=== PATIENT | male | born 1945 | race Caucasian/White ===

== ENCOUNTER 2017-10-20 08:48 | Outpatient (RCR) | payer BC, MEDICARE, SELFPAY ==
--- NOTE | 2017-10-24 07:27 | PT.OTN ---
Current Diagnoses Radiculopathy, lumbar region (10/20/17) Physical Therapy Treatment Note PT-OP-A Visit Information Start: 10/20/17 07:27 Freq: Status: Active Protocol: Document 10/20/17 09:00 AMB (Rec: 10/20/17 09:27 AMB [id number]) Out-Patient Physical Therapy Visit Information Visit Information Visit Type Treatment Note Visit Start Time 09:00 Visit Stop Time 09:45 Total Visit Minutes 45 Visit Number 7 Evaluation Information Evaluation Date 08/16/17 PT-OP-C Subjective Start: 10/20/17 07:27 Freq: Status: Active Protocol: Document 10/20/17 09:00 AMB (Rec: 10/23/17 15:31 AMB [email or web address]) OP-PT Subjective Patient Comments Patient Comments Pt returns from his trip, stating that his radiating leg pain has resolved well. He continues to have low back pain that has been present for years. He states he is ready to discharge. PT-OP-Q Treatments Start: 10/20/17 07:27 Freq: Status: Active Protocol: Document 10/20/17 09:00 AMB (Rec: 10/24/17 07:23 AMB [email or web address]) Therapeutic Exercises Supine Exercises 7 Supine Exercise Name Bridges Reps/Minutes 2 x 10 6 Supine Exercise Name psoas stretch Side bilateral Reps/Minutes 30x2 5 Supine Exercise Name piriformis stretch Side right Reps/Minutes 30x2 4 Supine Exercise Name hamstring stretch Side right Reps/Minutes 30x2 3 Supine Exercise Name single knee to chest Side bilateral Reps/Minutes 30 x 2 2 Supine Exercise Name dying bug Reps/Minutes 2 x 5 1 Supine Exercise Name SLR Side right Resistance 0# Reps/Minutes 3 x 10 Sidelying Exercises 1 Sidelying Exercise Name hip abduction Side right Reps/Minutes 2 x 10 Standing Exercises 1 Standing Exercise Name calf stretch Side bilateral Therapeutic Activity Therapeutic Activity 1 Name lifting mechanics Comments floor to waist, waist to shoulder, 20# PT-OP-T Assessment and Plan Start: 10/20/17 07:27 Freq: Status: Active Protocol: Document 10/20/17 09:00 AMB (Rec: 10/24/17 07:23 AMB [email or web address]) Physical Therapy Assessment Assessment Summary Assessment The patient's radiating leg pain is well resolved at this time, and did not flare up with his travel. He attended 7 PT visits and is independent with a LE stretching and core stability program at this time. He remains tight in his hamstrings, but can sit as long as he needs to without reproducing his leg pain, and can lift 20# from the floor to waist height without reproducing his radiating leg pain, so he is now discharged, having met his goals. Physical Therapy Plan Discharge Physical Therapy Discharge Reasons Goals Met Discharge Comments Pt to follow up with PCP regarding chronic low back pain Please Sign and Return: I have reviewed this Plan of Care and certify that the skilled therapy services above are required to meet the patient???s needs. Physician Signature Date Printed Name and Credentials Clinical Instructor Signature Printed Name and Credentials
== END 2017-11-23 15:23 ==
LOC: PHYS 08:48
PROVIDERS: Family Provider Family Medicine; PCP Family Medicine; Visit Provider Family Medicine
DX: M54.16 Radiculopathy, lumbar region (principal)
CPT/HCPCS: 97110; 97530

== ENCOUNTER → 2018-01-26 16:39 | Outpatient (CLI) | payer BC, MEDICARE, SELFPAY ==
[2018-01-26 21:22] LABS: Hep C Virus Ab w/Reflex Quant NEGATIVE s/c (NEGATIVE)
== END ==
PROVIDERS: Family Provider Family Medicine; PCP Family Medicine; Visit Provider Family Medicine
DX: Z20.5 Contact with and (suspected) exposure to viral hepatitis (principal)
CPT/HCPCS: 36415; 86803

== ENCOUNTER → 2018-05-01 14:35 | Outpatient (CLI) | payer BC, MEDICARE, SELFPAY | PROVIDERS: Family Provider Family Medicine; PCP Family Medicine; Visit Provider Family Medicine | DX: L97.521 Non-pressure chronic ulcer of other part of left foot limited to breakdown of skin (principal); G60.9 Hereditary and idiopathic neuropathy, unspecified | CPT/HCPCS: 97597; 99213; 99214 ==

== ENCOUNTER → 2018-05-08 08:05 | Outpatient (CLI) | payer BC, MEDICARE, SELFPAY ==
[2018-05-08 08:26] LABS: Appearance Urine UA CLEAR; Bilirubin Urine UA NEGATIVE (NEGATIVE); Color Urine UA YELLOW; Glucose Urine UA NEGATIVE (Normal); Ketones Urine UA NEGATIVE (NEGATIVE); Leukocyte Esterase Urine UA NEGATIVE (NEGATIVE); Nitrite Urine UA NEGATIVE (Negative); Occult Blood Urine UA NEGATIVE (Negative); Protein Urine UA NEGATIVE (Negative); Specific Gravity Urine UA 1.025 (1.000-1.035); Urobilinogen Urine UA 0.2 E.U./dL (0.2)
[2018-05-08 08:28] LABS: Add Manual Diff / Slide Review NO; Eosinophils Percent Auto 4.7 % (2-4); Hematocrit 44.3 % (41-53); Hemoglobin 15.4 g/dL (13.5-17.5); Lymphocytes Percent Auto 37.9 % (25-40); Mean Corpuscular HGB Conc 34.8 % (30-36); Mean Corpuscular Hemoglobin 32.1 PG (26-34); Mean Corpuscular Volume 92.2 fL (80-100); Monocytes Percent Auto 6.7 % (3-14); Neutrophils Absolute Auto 2700 /uL (3000-5900); Neutrophils Percent Auto 49.7 % (50-75); Platelet Count 231 X10^3/uL (150-400); Red Blood Cell Count 4.81 X10^6/uL (4.5-5.9); Red Cell Distribution Width 12.5 % (11.6-14.8); White Blood Cell Count 5.4 X10^3/uL (4.5-11.0)
[2018-05-08 08:42] LABS: Alanine Aminotransferase 26 IU/L (21-72); Albumin 4.6 g/dL (3.5-5.0); Albumin Globulin Ratio 1.5 (1.0-2.8); Alkaline Phosphatase 48 U/L (38-126); Aspartate Aminotransferase 30 IU/L (17-59); Bilirubin Total 0.6 mg/dL (0.2-1.3); Blood Urea Nitrogen 20 mg/dL (9-20); Calcium 9.4 mg/dL (8.4-10.2); Carbon Dioxide 28 mmol/L (22-32); Chloride 104 mmol/L (98-107); Cholesterol 225 mg/dL (140-199); Estimated Glomerular Filt Rate > 60.0 mL/min (>60); Globulin 3.1 g/dL (1.7-4.1); Glucose 97 mg/dL (80-110); HDL Cholesterol 43 mg/dL (40-60); HEMOLYSIS < 15 (0-50); LDL Cholesterol Calculated 116 mg/dL (<100); Potassium 4.3 mmol/L (3.4-5.1); Sodium 144 mmol/L (137-145); Total Protein 7.7 g/dL (6.3-8.2); Triglycerides 329 mg/dL (35-150)
[2018-05-08 10:06] LABS: Thyroid Stimulating Hormone 4.99 uIU/mL (0.47-4.68)
== END ==
PROVIDERS: Family Provider Family Medicine; PCP Family Medicine; Visit Provider Family Medicine
DX: I10 Essential (primary) hypertension (principal); I87.2 Venous insufficiency (chronic) (peripheral); Z51.81 Encounter for therapeutic drug level monitoring
CPT/HCPCS: 36415; 80053; 80061; 81003; 84443; 85025

== ENCOUNTER → 2018-05-08 | Outpatient (CLI) | payer MEDICARE, BC, SELFPAY | PROVIDERS: Family Provider Family Medicine; PCP Family Medicine; Visit Provider Family Medicine | DX: L97.522 Non-pressure chronic ulcer of other part of left foot with fat layer exposed (principal); G90.9 Disorder of the autonomic nervous system, unspecified | CPT/HCPCS: 11042 ==

== ENCOUNTER → 2018-05-08 | Outpatient (CLI) | payer MEDICARE, BC, SELFPAY ==
--- NOTE | 2018-05-08 10:42 | DI.RAD.S_ITS ---
PROCEDURE: XR KNEE LT 3V INDICATIONS: left knee pain TECHNIQUE: 3 views of the knee were acquired. COMPARISON: [facility], , KNEE 3V RIGHT, 03/15/2017, 11:19. FINDINGS: Bones: Mild tricompartment osteoarthritis in left knee is seen. No fractures or dislocations. No suspicious bony lesions. No significant patellar subluxation. Soft tissues: No joint effusion. No suspicious soft tissue calcifications. IMPRESSION: Mild tricompartment osteoarthritis in left knee. No fracture or dislocation. No significant joint effusion. Dictated by: Virgil Curry M.D. on 05/08/2018 at 12:13 Approved by: Virgil Curry M.D. on 05/08/2018 at 12:19
== END ==
PROVIDERS: Family Provider Family Medicine; PCP Family Medicine; Visit Provider Family Medicine
DX: M25.562 Pain in left knee (principal); M17.12 Unilateral primary osteoarthritis, left knee; I10 Essential (primary) hypertension; I87.2 Venous insufficiency (chronic) (peripheral); Z51.81 Encounter for therapeutic drug level monitoring
CPT/HCPCS: 36415; 73562; 80053; 80061; 81003; 84443; 85025

== ENCOUNTER → 2018-05-16 | Outpatient (CLI) | payer MEDICARE, BC, SELFPAY | PROVIDERS: Family Provider Family Medicine; PCP Family Medicine; Visit Provider Family Medicine | DX: L97.521 Non-pressure chronic ulcer of other part of left foot limited to breakdown of skin (principal); G90.9 Disorder of the autonomic nervous system, unspecified | CPT/HCPCS: 97597 ==

== ENCOUNTER → 2018-05-23 08:52 | Outpatient (CLI) | payer BC, MEDICARE, SELFPAY | PROVIDERS: Family Provider Family Medicine; PCP Family Medicine; Visit Provider Family Medicine | DX: Z48.817 Encounter for surgical aftercare following surgery on the skin and subcutaneous tissue (principal); L84 Corns and callosities; G90.9 Disorder of the autonomic nervous system, unspecified | CPT/HCPCS: 99212; 99213 ==

== ENCOUNTER → 2018-06-12 08:39 | Outpatient (CLI) | payer BC, MEDICARE, SELFPAY ==
[2018-06-12 09:45] LABS: BUN Creatinine Ratio 17.8 (6-22); Blood Urea Nitrogen 16 mg/dL (9-20); Calcium 9.3 mg/dL (8.4-10.2); Carbon Dioxide 24 mmol/L (22-32); Chloride 106 mmol/L (98-107); Estimated Glomerular Filt Rate > 60.0 mL/min (>60); Glucose 96 mg/dL (80-110); HEMOLYSIS < 15 (0-50); Sodium 141 mmol/L (137-145)
[2018-06-12 10:24] LABS: Free T3, Triiodothyronine Free 3.44 pg/mL (2.77-5.27)
[2018-06-12 10:38] LABS: Thyroid Stimulating Hormone 3.82 uIU/mL (0.47-4.68)
== END ==
PROVIDERS: Family Provider Family Medicine; PCP Family Medicine; Visit Provider Urology
DX: R39.15 Urgency of urination (principal); N40.1 Benign prostatic hyperplasia with lower urinary tract symptoms; R35.0 Frequency of micturition; R39.9 Unspecified symptoms and signs involving the genitourinary system; R79.89 Other specified abnormal findings of blood chemistry
CPT/HCPCS: 36415; 80048; 84443; 84481; 85018; 87077; 87086; 87186

== ENCOUNTER 2018-10-02 07:51 | Day surgery (SDC) | payer MEDICARE, BC, SELFPAY ==
--- NOTE | 2018-10-02 | PATH_ITS ---
[facility] Accession Number: [id number] . 01 Material submitted: . body - BIOPSY POLYP AT 60 . 02 Diagnosis: Colon, Polyp at 60, Biopsy: Benign lymphoid aggregate. Additional levels were examined. [facility]/10/04/2018 . 02 Electronically signed: . April Causey MD, Pathologist NPI- [id number] . 01 Gross description: . BIOPSY POLYP AT 60: Received in formalin is 1 fragment(s) of munoz, soft tissue measuring 0.3 x 0.2 x 0.2 cm which is entirely submitted and submitted entirely in 1 cassette(s) /DMC /DMC . 02 Pathologist provided ICD-10: K63.5 . 02 CPT . 171548 Performed at: 01 [facility] [address] [facility], [place], [place] [id number] MD Mustapha Kahn MD Phone: [phone] Performed at: 02 [facility] [address] [place], [place] [id number] MD April Causey MD Phone: [phone]
[2018-10-02 08:23] VITALS: BP 135/84; PULSE 88; RESP 16; TEMP 36.4; O2SAT 96; BMI 32.5
[2018-10-02] MEDS: SODIUM CHLORIDE 0.9% 1,000 ML 100 ML IV (08:42)
--- NOTE | 2018-10-02 08:53 | PM.HP.1 ---
History of Present Illness Date Patient Seen: 10/02/18 Time Patient Seen: 08:53 Chief complaint: [id number] Narrative: Patient is a gentleman here for screening colonoscopy. No family history of colon cancer. Last exam over 10 years ago Patient History Medical History (Updated 10/02/18 @ 08:56 by Juan Nunez MD) BPH (benign prostatic hyperplasia) (Chronic) Essential hypertension with goal blood pressure less than 130/85 (Chronic) Surgical History Status post bunionectomy Family History (Updated 10/02/18 @ 08:58 by Juan Nunez MD) Brother Cancer Social History household members: spouse Smoking Status: Never smoker Family & Social History Family History (Updated 10/02/18 @ 08:58 by Juan Nunez MD) Brother Cancer Social History: household members spouse Tobacco & Substance use: Smoking Status Never smoker Meds Home Medications Medication Instructions Recorded Confirmed Type aspirin 81 mg PO QDAY #0 06/10/16 06/19/18 History cholecalciferol (vitamin D3) 1,000 1,000 unit PO DAILY 12/12/17 06/19/18 History unit capsule vitamin B complex tablet 1 tab PO DAILY 12/12/17 06/19/18 History vitamin c PO 12/12/17 06/19/18 History fenofibrate nanocrystallized 145 145 mg PO DAILY #90 tab 08/13/18 Rx mg tablet finasteride 5 mg tablet 5 mg PO QDAY #90 tab 08/13/18 Rx valsartan 160 mg tablet 160 mg PO DAILY #90 tab 08/22/18 Rx Allergies Allergy/AdvReac Type Severity Reaction Status Date / Time doxazosin [DOXAZOSIN] Allergy Severe High Verified 10/02/18 08:20 temperature, rash, lumps on skin mezlocillin [MEZLOCILLIN] Allergy Severe High Verified 10/02/18 08:20 temperature, rash, lumps on skin Penicillins [PENICILLINS] Allergy Severe High Verified 10/02/18 08:20 temperature, rash, lumps on skin Sulfa (Sulfonamide Allergy Severe High Verified 10/02/18 08:20 Antibiotics) temperatures, [SULFA (SULFONAMIDE rash, ANTIBIOTICS)] lumps on skin trimethoprim [TRIMETHOPRIM] Allergy Severe High Verified 10/02/18 08:20 temperature, rash, lumps on skin Review of Systems Constitutional Constitutional: Reports system reviewed and no additional complaints, except as documented Exam Vital Signs (past 8 hours): - 10/02/18 08:23 Temperature 97.5 F L Pulse Rate 88 Respiratory Rate 16 Blood Pressure 135/84 Pulse Oximetry 96 Oxygen Delivery Method Room Air Narrative Exam Narrative: Pleasant cooperative patient no apparent distress. Lungs are clear to auscultation. No rales or rhonchi. Heart regular rate and rhythm no murmur gallop. Abdomen is soft nontender without mass. No obvious hernias. Patient is alert and oriented x3. Assessment & Plan Assessment & Plan narrative: The patient for a screening colonoscopy. I have discussed the procedure with them. Risks of bleeding, perforation which would necessitate major operation, failure to find remove all lesions, the potential tattoo were all discussed. All questions were answered. They wished to proceed.
--- NOTE | 2018-10-02 08:58 | PM.PREOP ---
Pre-operative Note Interval Note History & Physical reviewed/Exam performed by Physician: Yes Changes to H&P: No ASA Class (for procedural sedation): II
[2018-10-02] MEDS: MIDAZOLAM 5 MG/5 ML VIAL IV (09:11)
[2018-10-02] MEDS: fentaNYL 250 MCG/5 ML INJ IV (09:12)
[2018-10-02] MEDS: GLUCAGON,HUMAN RECOMBINANT 1 MG/ML VIAL IV (09:13)
--- NOTE | 2018-10-02 09:15 | SUR.OPER ---
LEFT HEARING AID IN LABELED CONTAINER TO PACU WITH PATIENT. RIGHT STILL IN PLACE
--- NOTE | 2018-10-02 09:34 | PM.OP.ENDO ---
Operative Date/Time/Diagnoses Date of procedure: 10/02/18 Time of procedure: 09:35 Pre-op diagnosis: Screening examination. Last exam over 10 years ago. Post-op diagnosis: same (One tiny polyp. Sigmoid diverticulosis.) Procedure & Clinicians Study performed: Colonoscopy with cold biopsy Same procedure as scheduled: Yes Indications: Screening Surgeon: Juan Nunez Procedure Notes SCOAP/Timeout: Performed Procedure in detail: The patient was placed in the left lateral decubitus position and underwent IV sedation directed by the surgeon consisting of fentanyl and Versed. It was difficult to insert a finger very far into his anus due to his buttock anatomy. The scope was inserted and advanced through the rectum into the sigmoid, descending, transverse, and ascending colon. The patient appeared to have a lot of colonic spasm was given glucagon. He was noted to have sigmoid diverticulosis. The cecum was reached identified by the ileocecal valve and the appendiceal opening. The scope was gradually brought out. One Polyp was found at 60 cm from the anal verge. It was tiny and may not be neoplastic but was removed anyhow.. The scope ultimately was retroflexed in the rectum. The appearance was normal. The scope was removed and the patient tolerated the procedure well. prep was adequate with irrigation and suction. colon was very difficult to distend with air. Scope withdrawal time: 15 minutes Sedation minutes: 33 Findings: polyp (Tiny at 60 cm. May not be pre cancers.) Specimen(s): other (Polyps) Complications: none Recommendations: Other recommendation (Depending on the pathology report you may need to have this test repeated in 5 years. We will notify you by mail.) Follow up: as needed Disposition: PACU
[2018-10-02 09:37] VITALS: BP 122/71; PULSE 75; RESP 19; TEMP 36.8; O2SAT 93
[2018-10-02 09:42] VITALS: BP 116/69; PULSE 73; RESP 17; TEMP 36.8; O2SAT 93
[2018-10-02 09:47] VITALS: BP 107/69; PULSE 80; RESP 12; TEMP 36.4; O2SAT 93
[2018-10-02 09:51] VITALS: BP 109/67; PULSE 81; RESP 16; TEMP 36.4; O2SAT 93
== END 2018-10-02 10:20 | disposition home or self-care (01) ==
PROVIDERS: Family Provider Family Medicine; PCP Family Medicine; Visit Provider Specialist
PROC: 0DJD8ZZ Inspection of Lower Intestinal Tract, Via Natural or Artificial Opening Endoscopic (ICD-10-PCS; CPT 45378; principal; 2018-10-02 08:45)
DX: Z12.11 Encounter for screening for malignant neoplasm of colon (principal); K57.30 Diverticulosis of large intestine without perforation or abscess without bleeding; N40.0 Benign prostatic hyperplasia without lower urinary tract symptoms; I10 Essential (primary) hypertension; K63.5 Polyp of colon
CPT/HCPCS: 45380; 99152; 99153; J1610; J2250; J3010

== ENCOUNTER → 2018-11-07 | Outpatient (CLI) | payer MEDICARE, BC, SELFPAY ==
[2018-11-07 09:10] LABS: Add Manual Diff / Slide Review NO; Basophils Absolute Auto 0 /uL (0-100); Basophils Percent Auto 0.7 % (0-2); Eosinophils Absolute Auto 200 /uL (0-450); Eosinophils Percent Auto 3.8 % (2-4); Hematocrit 44.2 % (41-53); Hemoglobin 15.2 g/dL (13.5-17.5); Lymphocytes Absolute Auto 2100 /uL (1100-4500); Lymphocytes Percent Auto 41.2 % (25-40); Mean Corpuscular HGB Conc 34.5 % (30-36); Mean Corpuscular Hemoglobin 31.9 PG (26-34); Mean Corpuscular Volume 92.6 fL (80-100); Monocytes Absolute Auto 400 /uL (0-900); Monocytes Percent Auto 7.8 % (3-14); Neutrophils Absolute Auto 2400 /uL (1500-7000); Neutrophils Percent Auto 46.5 % (50-75); Platelet Count 308 X10^3/uL (150-400); Red Blood Cell Count 4.77 X10^6/uL (4.5-5.9); Red Cell Distribution Width 12.5 % (11.6-14.8); White Blood Cell Count 5.1 X10^3/uL (4.5-11.0)
[2018-11-07 09:46] LABS: Alanine Aminotransferase 28 IU/L (21-72); Albumin 4.6 g/dL (3.5-5.0); Albumin Globulin Ratio 1.4 (1.0-2.8); Alkaline Phosphatase 55 U/L (38-126); Aspartate Aminotransferase 40 IU/L (17-59); BUN Creatinine Ratio 17.3 (6-22); Bilirubin Total 0.7 mg/dL (0.2-1.3); Blood Urea Nitrogen 19 mg/dL (9-20); Calcium 9.4 mg/dL (8.4-10.2); Carbon Dioxide 27 mmol/L (22-32); Chloride 102 mmol/L (98-107); Cholesterol 198 mg/dL (140-199); Estimated Glomerular Filt Rate > 60.0 mL/min (>60); Globulin 3.4 g/dL (1.7-4.1); Glucose 113 mg/dL (80-110); HDL Cholesterol 31 mg/dL (40-60); HEMOLYSIS < 15 (0-50); LDL Cholesterol Calculated 108 mg/dL (<100); Potassium 4.5 mmol/L (3.4-5.1); Sodium 139 mmol/L (137-145); Triglycerides 296 mg/dL (35-150)
[2018-11-07 10:16] LABS: Thyroid Stimulating Hormone 3.63 uIU/mL (0.47-4.68)
== END ==
PROVIDERS: PCP Family Medicine; Visit Provider Family Medicine
DX: E78.5 Hyperlipidemia, unspecified (principal); I10 Essential (primary) hypertension; N40.0 Benign prostatic hyperplasia without lower urinary tract symptoms
CPT/HCPCS: 36415; 80053; 80061; 84443; 85025

== ENCOUNTER → 2019-04-11 08:40 | Outpatient (CLI) | payer BC, MEDICARE, SELFPAY ==
[2019-04-11 10:07] LABS: Triglycerides 391 mg/dL (35-150)
== END ==
PROVIDERS: Nurse Practitioner Family; PCP Family Medicine; Visit Provider Family Medicine
DX: E78.1 Pure hyperglyceridemia (principal)
CPT/HCPCS: 36415; 84478

== ENCOUNTER → 2019-05-24 07:49 | Outpatient (CLI) | payer MEDICARE, BC, SELFPAY ==
[2019-05-24 08:37] LABS: Alanine Aminotransferase 30 IU/L (<50); Albumin 4.6 g/dL (3.5-5.0); Albumin Globulin Ratio 1.5 (1.0-2.8); Alkaline Phosphatase 48 U/L (38-126); Aspartate Aminotransferase 37 IU/L (17-59); Bilirubin Total 0.6 mg/dL (0.2-1.3); Blood Urea Nitrogen 19 mg/dL (9-20); Calcium 9.6 mg/dL (8.4-10.2); Carbon Dioxide 27 mmol/L (22-32); Chloride 104 mmol/L (98-107); Cholesterol 201 mg/dL (140-199); Estimated Glomerular Filt Rate > 60.0 mL/min (>60); Glucose 102 mg/dL (80-110); HDL Cholesterol 42 mg/dL (40-60); HEMOLYSIS < 15 (0-50); LDL Cholesterol Calculated 93 mg/dL (<100); Sodium 141 mmol/L (137-145); Total Protein 7.6 g/dL (6.3-8.2); Triglycerides 328 mg/dL (35-150)
== END ==
PROVIDERS: PCP Family Medicine; Visit Provider Family Medicine
DX: E78.1 Pure hyperglyceridemia (principal); I10 Essential (primary) hypertension
CPT/HCPCS: 36415; 80053; 80061

== ENCOUNTER → 2019-08-06 13:43 | Outpatient (CLI) | payer BC, MEDICARE, SELFPAY ==
[2019-08-08 14:40] LABS: Fecal Immunochemical Test NOT DETECTED (NOT DETECTED)
== END ==
PROVIDERS: PCP Student in an Organized Health Care Education/Training Program; Referring Provider Student in an Organized Health Care Education/Training Program; Visit Provider Student in an Organized Health Care Education/Training Program
DX: E78.1 Pure hyperglyceridemia (principal); Z80.0 Family history of malignant neoplasm of digestive organs
CPT/HCPCS: 82274

== ENCOUNTER → 2019-11-25 | Outpatient (CLI) | payer MEDICARE, BC, SELFPAY ==
[2019-11-26 08:52] LABS: COVID19 Sendout Not Detected (Not Detect)
== END ==
PROVIDERS: PCP Student in an Organized Health Care Education/Training Program; Visit Provider Nurse Practitioner
DX: Z01.812 Encounter for preprocedural laboratory examination (principal)
CPT/HCPCS: 87635

== ENCOUNTER → 2020-05-25 | Outpatient (CLI) | payer MEDICARE, BC, SELFPAY ==
[2020-05-25 09:39] LABS: BUN Creatinine Ratio 17.9 (6-22); Blood Urea Nitrogen 17 mg/dL (9-20); Calcium 9.6 mg/dL (8.4-10.2); Carbon Dioxide 30 mmol/L (22-32); Chloride 108 mmol/L (98-107); Estimated Glomerular Filt Rate > 60.0 mL/min (>60); Glucose 105 mg/dL (80-110); HEMOLYSIS < 15 (0-50); Potassium 4.8 mmol/L (3.4-5.1); Sodium 141 mmol/L (137-145)
== END ==
PROVIDERS: PCP Student in an Organized Health Care Education/Training Program; Referring Provider Student in an Organized Health Care Education/Training Program; Visit Provider Student in an Organized Health Care Education/Training Program
DX: I10 Essential (primary) hypertension (principal)
CPT/HCPCS: 36415; 80048

== ENCOUNTER → 2020-10-07 12:04 | Outpatient (CLI) | payer MEDICARE, BC, SELFPAY ==
--- NOTE | 2020-10-07 12:06 | DI.RAD.S_ITS ---
PROCEDURE: XR HAND RT MIN 3V INDICATIONS: Right hand pain TECHNIQUE: 3 views of the hand(s) acquired. COMPARISON: None. FINDINGS: Bones: No fractures or dislocations. Carpal bones are normally aligned. No suspicious bony lesions. Polyarticular joint space narrowing with periarticular osteophyte formation, most notably and severe involving the triscaphe joint. Juxta-articular lucencies involve the distal ulna, the capitate, the distal pole of the scaphoid, the 1st through 4th MCP joints as well as multiple interphalangeal joints. Soft tissues: No suspicious soft tissue calcifications. 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 Inflammatory arthropathy cannot be excluded. Dictated by: Tu Zimmer [facility] Interpreted: Martha Mendez MD on 10/07/2020 at 13:07 Transcribed by: CARLOS MANUEL on 10/07/2020 at 13:09 Approved by: Martha Mendez M.D. on 10/07/2020 at 13:28
== END ==
PROVIDERS: PCP Student in an Organized Health Care Education/Training Program; Referring Provider Student in an Organized Health Care Education/Training Program; Visit Provider Student in an Organized Health Care Education/Training Program
DX: M79.641 Pain in right hand (principal); M19.041 Primary osteoarthritis, right hand
CPT/HCPCS: 73130

== ENCOUNTER → 2021-01-13 | Outpatient (CLI) | payer MEDICARE, BC, SELFPAY ==
--- NOTE | 2021-01-13 10:40 | DI.RAD.S_ITS ---
PROCEDURE: XR LUMBAR SPINE 2-3V INDICATIONS: Low back pain TECHNIQUE: 3 views of the lumbar spine were acquired. COMPARISON: [facility], , L-SPINE MINIMUM 4 VIEWS, 07/05/2017, 12:52. FINDINGS: Bones: 5 [id number] vertebrae are present. Trace multilevel retrolisthesis and trace spondylolisthesis at the L4-L5 level. Multilevel disc degeneration, severe at the L4-L5 and L5-S1 levels. Moderate L4-L5 and L5-S1 facet joint arthropathy. No vertebral body compression fractures. No suspicious bony lesions. Soft tissues: Overlying bowel gas pattern is normal. No suspicious soft tissue calcifications. IMPRESSION: Multilevel spondylosis redemonstrated which appears similar to prior examination dated 07/05/2017. Dictated by: Tu Zimmer [facility] Interpreted: Penny Morales MD on 01/13/2021 at 12:12 Transcribed by: LITZY on 01/13/2021 at 12:13 Approved by: Penny Morales MD, PhD on 01/13/2021 at 12:27
--- NOTE | 2021-01-13 10:40 | DI.RAD.S_ITS ---
PROCEDURE: XR HIP W PEL IF DONE BRODIE MIN 4V INDICATIONS: Bilateral hip pain TECHNIQUE: AP pelvis with lateral view(s) of the left and right hip(s). COMPARISON: None. FINDINGS: Bones: No acute fracture. Lumbar spondylosis and facet arthropathy. Abun-rr-xxogixtu bilateral hip joint degeneration. Scattered degenerative subchondral sclerosis and spurring. Soft tissues: The visualized bowel gas pattern is normal. No suspicious soft tissue calcifications. IMPRESSION: [id number] bilateral hip osteoarthritis as above. Dictated by: Peter Dominguez M.D. on 01/13/2021 at 11:48 Approved by: Peter Dominguez M.D. on 01/13/2021 at 11:49
== END ==
PROVIDERS: PCP Student in an Organized Health Care Education/Training Program; Referring Provider Student in an Organized Health Care Education/Training Program; Visit Provider Student in an Organized Health Care Education/Training Program
DX: M25.551 Pain in right hip (principal); M25.552 Pain in left hip; M54.5 Low back pain; M16.0 Bilateral primary osteoarthritis of hip; M47.816 Spondylosis without myelopathy or radiculopathy, lumbar region; M47.817 Spondylosis without myelopathy or radiculopathy, lumbosacral region
CPT/HCPCS: 72100; 73522

== ENCOUNTER → 2021-02-02 07:42 | Outpatient (CLI) | payer MEDICARE, BC, SELFPAY ==
--- NOTE | 2021-02-02 07:44 | DI.RAD.S_ITS ---
PROCEDURE: FL BARIUM SWALLOW W SPEECH INDICATIONS: Choking during meals COMPARISON: None. TECHNIQUE: Examination was conducted in conjunction with speech pathology per standard protocol. In the lateral projection, filming was performed of the patient swallowing. AP projection filming may also be performed with patient swallowing. COMPARISON: FINDINGS: Function: The oral preparatory phase appears normal, with proper containment. The subsequent oral propulsive phase, pharyngeal phase, and esophageal phase of swallowing also appear normal with all proffered substances. No laryngotracheal penetration or aspiration. No pathologic vallecular pooling. Morphology: No cricopharyngeal bar is identified. No cervical esophageal webs. No Zenker's diverticulum. No strictures. IMPRESSION: Normal examination without evidence of laryngotracheal penetration or aspiration. Dictated by: Penny Morales MD, PhD on 02/02/2021 at 15:27 Approved by: Penny Morales MD, PhD on 02/02/2021 at 15:28
--- NOTE | 2021-02-02 13:24 | ST.SWALLOW ---
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 Lipscomb Reason for Referral pt reports coughing with meals Setting Setting Outpatient Care Patient Information Identification Type Name,Date of Patient History Pt was seen for a modified Barium Swallow Study at the referral of Dr. Lipscomb. According to the pthe coughf frequently during meals and sometimes with his saliva. hewil cough more frequently with foods like cookies that are crunchy, crackers, chips. His recommended that he get a swallow evaluation. Pt stated that he also coughs several times while sleeping. He noted that he has reflux. Pt is scheduled for sleep study in the near future. Subjective Observations Pt was seated in the fluoroscopy chair. Instructions and procedures were described for the pt who indicated that he understood and agreed to proceed. Patient Positioning Position View Lat-A/P Imaging Lateral View Textures Administered Trials Presented Thin Liquid via Spoon,Thin Liquid via Cup,Pudding Thick Liquid via Spoon,Regular Textures,Barium Tablet Oral Phase Source: MBSIMP (TM) (C) Bolus Specific Scoring Grid Lip Closure No Impairment (WNL) Tongue Control During Bolus Hold No Impairment (WNL) Bolus Prep/Mastication No Impairment (WNL) Bolus Transport/Lingual Motion No Impairment (WNL) Oral Residue No Impairment (WNL) Residue Clearing No Impairment (WNL) Nasal Regurgitation No Additional Oral Phase Observations Oral structures were WNL for structure and strength. Dentition normal. Good bolus containment, control and A-P propulsion. Pharyngeal Phase Source: MBSIMP (TM) (C) Bolus Specific Scoring Grid Delayed Initiation of Pharyngeal Swallow No Soft Palate Elevation No Impairment (WNL) Tongue Base Strength/Range of Motion No Impairment (WNL) Residue Along the Tongue Base Yes: Trace. Cleared with subsequent swallows Clearance of Residue Along Tongue Base No Impairment (WNL) Laryngeal Elevation No Impairment (WNL) Anterior Hyoid Movement No Impairment (WNL) Epiglottic Range of Motion No Impairment (WNL) Vallecular Residue No Laryngeal Vestibular Closure WFL Pharyngeal Stripping Wave No Impairment (WNL) Posterior Pharyngeal Wall Residue No Upper Esophageal Sphincter Opening No Impairment (WNL) Residue in the Pyriform Sinuses No Esophageal Clearance Upright Position No Impairment (WNL) Pharyngoesophageal Backflow Observed No Additional Pharyngeal Phase Observations Flash penetration was observed x1, which is considered to normal for older patients. No remaining residue, no cough triggered. All structures and function considered to be normal. Cookie trials x3 resulted in no valecullar residue. Good hyolaryngeal elevation and airway protection/laryngeal seal. No cough/choke/throat-clear observed. A/P View Textures Administered Trials Presented Thin Liquid via Cup,Pudding Thick Liquid via Spoon,Regular Textures A/P View Observations Pharyngeal Contraction No Impairment (WNL) Esophageal Clearance Upright Position WFL Clinical Impressions Dysphagia Type No dysphagia Findings Pt presented with normal swallowing for his age. Reviewed the findings with the pt following study. Suggestions were made to slow down eating pace, take smaller bites and be more mindful of swallowing. Also to reduce distractions and swallow before continuing a conversation. Pt indicated he understood and was appreciative. Patient Appropriate for Therapy No Recommendations Aspiration Precautions Recommended Precautions Alternate Liquids/Solids Additional Precautions strategies suggested: slow rate, smaller bites, mindful eating/swallowing Treatment Plan Recommended Referrals Primary Care Physician
== END ==
PROVIDERS: PCP Student in an Organized Health Care Education/Training Program; Referring Provider Student in an Organized Health Care Education/Training Program; Visit Provider Student in an Organized Health Care Education/Training Program
DX: T17.908A Unspecified foreign body in respiratory tract, part unspecified causing other injury, initial encounter (principal); R09.89 Other specified symptoms and signs involving the circulatory and respiratory systems
CPT/HCPCS: 74230; 92611

== ENCOUNTER → 2021-04-13 14:15 | Outpatient (CLI) | payer BC, MEDICARE, SELFPAY ==
[2021-04-13 16:12] LABS: Uric Acid 5.9 mg/dL (3.5-8.5)
== END ==
PROVIDERS: PCP Student in an Organized Health Care Education/Training Program; Referring Provider Podiatrist; Visit Provider Podiatrist
DX: M79.89 Other specified soft tissue disorders (principal)
CPT/HCPCS: 36415; 84550

== ENCOUNTER 2021-05-18 16:00 | Outpatient (RCR) | payer MEDICARE, BC, SELFPAY ==
--- NOTE | 2021-03-24 17:25 | PT.OIE ---
Current Diagnoses Spinal stenosis, lumbar region with neurogenic claudication (03/24/21) Difficulty in walking, not elsewhere classified (03/24/21) Abnormal posture (03/24/21) Past Medical History (Last Updated 03/24/21 @ 11:45 by Cassi Aj MA) BPH (benign prostatic hyperplasia) Carpal tunnel syndrome of left wrist Essential hypertension with goal blood pressure less than 130/85 Past Surgical History (Last Reviewed 03/04/21 @ 09:58 by Jason Ibrahim MD) Status post bunionectomy Visit Care Team Role Provider Type Danny Lipscomb MD Primary Care Provider Physician Specialty: Internal Medicine Address: [address] [place] [address], [address], [address] Email: [email or web address] Pedro Field MD Attending Provider Physician Referring Provider Specialty: Orthopedics Address: [address] [place] [address], [id number] Email: [email or web address] [facility] Initial Evaluation PT-OP-A Visit Information Start: 03/23/21 15:16 Freq: Status: Active Protocol: Document 03/24/21 16:00 AW (Rec: 03/24/21 17:01 AW [email or web address]) Out-Patient Physical Therapy Visit Information Visit Information Visit Type Initial Evaluation Visit Start Time 15:15 Visit Stop Time 16:00 Total Visit Minutes 45 Visit Number 1 Number of TUB OPERATOR Visits 0 Evaluation Information Evaluation Date 03/24/21 PT-OP-B Current Condition Start: 03/23/21 15:16 Freq: Status: Active Protocol: Document 03/24/21 16:00 AW (Rec: 03/23/21 15:26 AW [id number]) Current Condition History of Current Condition Onset Date 10 months Current Complaints low back pain History of Current Condition Pt states he has low back pain when standing or trying to go for a walk. Pressure builds up and the only way to relieve it is to sit down. He can stand or walk 45 minutes at the most. He lives in [place] and [place] or around [place] neighborhood. He has no problem picking items up from the floor. Sleeping on his back tends to exacerbate his pain; he tends to sleep on his left side. Sitting and Motrin relieve his pain. Pt prefers to use Motrin sparingly and states he is most likely to use it if he needs to ensure a good nights' sleep. Pt has long history of neuropathy in bilateral feet but reports no trouble with balance or falls. He does admit that he attends to his gait initiation by standing up square, turning, and then beginning to walk as opposed to getting up and going without thinking about it. Pt states he wears 2-3 pair of socks with shoes at nearly all times. Extra socks keep his feet warm and protect him from injury since he has absent light touch sensation especially on the bottoms of his feet. He also has history of PAD but recent ankle- brachial index was >1.5 bilaterally. Pt had a sleep study recently and CPAP was recommended. Pt is waiting on equipment to arrive. 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 The gloves keep swelling down and help with pain. Prior Treatments and Tests - X-rays 01/13/21 with findings of mild to moderate bilateral hip OA and multilevel spondylosis with no significant change since June 2017. - MRI lumbar spine 01/21/21: 1 . Multilevel degenerative disc and facet disease, as well as ligamentum flavum hypertrophy and epidural lipomatosis. 2. Multilevel canal stenoses, worst at L3-L4 and L4-L5, where there are severe canal stenosis. 3. Multilevel foraminal stenoses, worst at L4-L5 and L5-S1 where there is associated intraforaminal nerve root compression. Recommend correlation with clinical symptoms to ascertain relevance of these findings. - PT for bilateral MCP ROM and sensation disturbance in 2019 . Future Testing and Treatments Planned None identified Treatment Goals Patient/Caregiver Goals Avoid surgery. Improve standing and walking tolerance . Reduce back pain. Improve sleep. Current Functional Impairments (Reported) Functional Limitations- Mobility/Gait Poor tolerance for walking and standing Functional Limitations- Work/School Unable to work with hands as well as he used to due to arthritis and neuropathy. Personal Factors Other Personal Factors That May Effect (+) prior experience with PT Therapy/Recovery (+) motivated to avoid invasive treatment PT-OP-C Subjective Start: 03/23/21 15:16 Freq: Status: Active Protocol: Document 03/24/21 16:00 AW (Rec: 03/24/21 17:01 AW [email or web address]) OP-PT Subjective Patient Comments Patient Comments I've always had good results from PT so I'm ready to try again. Patient Questionnaires Oswestry Low Back Index Oswestry Score 16 Oswestry Impairment 0% Impaired (Score 0) OP-PT Pain Assessment Pain Assessment Grid Paper Pain Assessment Grid Completed Yes: scanned to EMR Comments Pain Comments Pain is well-localized to lumbar spine. No radiation. PT-OP-F Manual Assessment Start: 03/23/21 15:16 Freq: Status: Active Protocol: Document 03/24/21 16:00 AW (Rec: 03/24/21 17:01 AW [email or web address]) Manual Assessments Soft Tissue Assessment Soft Tissue Mobility Assessment Hamstring extensibility limited in SLR - lacking 15-20 degrees bilaterally. Joint Mobility Assessment Joint Mobility Assessment Hip internal rotation severely limited bilaterally and left end-range IR reproduces back pain. Lumbar PA's restricted below ~L3 with appreciable hinge at this level. PT-OP-G Mobility & Gait Start: 03/23/21 15:16 Freq: Status: Active Protocol: Document 03/24/21 16:00 AW (Rec: 03/24/21 17:01 AW [email or web address]) OP Gait Assessment Comments Gait Comments Gait is mildly antalgic with wide DAYLIN. Pt has flat feet and wears SuperFeet in his shoes which are worn more on the lateral aspects. Pt walks with increased right trunk rotation. PT-OP-H Neuro Start: 03/23/21 15:16 Freq: Status: Active Protocol: Document 03/24/21 16:00 AW (Rec: 03/24/21 17:01 AW [email or web address]) Sensation Evaluation Gross Sensation Gross Sensation Left LE Impaired,Right LE Impaired Sensation Description Numbness Comments Summary Comments Pt has history of neuropathy and lacks light touch sensation in bilateral feet. Pt can not feel deep pressure in either foot. Sensitivity to deep pressure begins at level of malleoli. Deep Tendon Reflex & Clonus Assessment Deep Tendon Reflex Bilateral Achilles Deep Tendon Reflex 1+ Diminished Bilateral Patellar Deep Tendon Reflex 1+ Diminished PT-OP-J Posture/Palpation/Skin Start: 03/23/21 15:16 Freq: Status: Active Protocol: Document 03/24/21 16:00 AW (Rec: 03/24/21 17:01 AW [email or web address]) Posture Evaluation Position Standing Evaluation View Lateral Comments Posture Comments Flat lumbar spine with appreciable hinge at ~L3. PT-OP-K Range of Motion Start: 03/23/21 15:16 Freq: Status: Active Protocol: Document 03/24/21 16:00 AW (Rec: 03/24/21 17:08 AW [email or web address]) Lumbar Spine Range of Motion Lumbar Spine Active Degrees Testing Position Standing Flexion 75 Extension 10 Comments B rotation WNL. Left lateral flexion reproduces low back pain. Pt loses balance with reaching sideways both directions. Hip Goniometric Range of Motion Hip bilateral Comments Internal rotation <10 degrees bilaterally in supine and left hip IR reproduces back pain. Flexion mildly limited by habitus. Extension reproduces back pain. PT-OP-L Special Tests Start: 03/23/21 15:16 Freq: Status: Active Protocol: Document 03/24/21 16:00 AW (Rec: 03/24/21 17:08 AW [email or web address]) Special Tests Lumbar Spine Special Tests Slump Test Results negative Hip Special Tests Scour Test Test Results negative PT-OP-M Strength Start: 03/23/21 15:16 Freq: Status: Active Protocol: Document 03/24/21 16:00 AW (Rec: 03/24/21 17:08 AW [email or web address]) Hip Strength Hip Manual Muscle Testing bilateral Flexion (L2) 4 Good Extension (S1) 4 Good Abduction 4 Good External Rotation 4+ Good+ Internal Rotation 4+ Good+ PT-OP-Q Treatments Start: 03/23/21 15:16 Freq: Status: Active Protocol: Document 03/24/21 16:00 AW (Rec: 03/24/21 17:12 AW [email or web address]) Self-Care/Home Management Treatment Education Patient Education Body Mechanics,Pain Management Other Education Discussed results of evaluation with pt and initiated education on sleeping posture as well as spinal stenosis pathology and treatment. PT-OP-T Assessment and Plan Start: 03/23/21 15:16 Freq: Status: Active Protocol: Document 03/24/21 16:00 AW (Rec: 03/24/21 17:25 AW [email or web address]) Physical Therapy Assessment Rehab Potential Rehabilitation Potential Good Evaluation Complexity Number of Personal Factors/Comorbidities 1-2 Number of Body Systems Impaired 3 Clinical Presentation at Evaluation Stable Impairments Impairments Balance,Functional Activities, Gait,Pain,Posture,ROM, Sensation,Soft Tissue Mobility ,Strength Goals Three Impairment strength Short Term Goal (STG) Pt will complete 10 reps on 30 second sit to stand test without use of UE's as a measure of improved BLE strength. STG Duration 04/24/21 Assistant Terminal Manager Goal (LTG) Pt will complete 15 reps on 30 second sit to stand test without use of UE's as a measure of improved BLE strength. LTG Duration 05/24/21 Two Impairment lacks HEP Short Term Goal (STG) Pt will be educated in positions of comfort to manage back pain and improve posture . STG Duration 04/24/21 Assistant Terminal Manager Goal (LTG) Pt will be independent with HEP for long-term management of back pain symptoms. One Impairment limited standing/walking tolerance Assistant Terminal Manager Goal (LTG) Pt will walk or stand for one hour without increase in baseline pain to return to walking program for exercise LTG Duration 05/24/21 Assessment Summary Assessment Leo is a 75 yo man seen for outpatient PT evaluation with complaints of low back pain which is worse with prolonged standing and walking. He denies any symptoms in his legs. History of back pain likely predisposes pt to current complaints and he admits the pain has worsened gradually over the past several months to a year. He presents with painful lumbar extension and left side- bending, hinge at mid-lumbar spine, and weakness in hip abduction and extension. Pt should benefit from skilled physical therapy to address postural and strength deficits to improve pain-free range of motion and tolerance for walking and standing. Physical Therapy Plan Frequency and Duration Frequency of Treatment 1-2x/week Duration of Treatment 2 months Plan of Care Start Date 03/24/21 Plan of Care End Date 05/24/21 Therapeutic Interventions Therapeutic Interventions Balance Training,Gait Training ,Home Exercise Program,Manual Therapy,Neuromuscular Re- education,Patient/Caregiver Education,Self-Care/Home Management,Soft Tissue Mobilization,Therapeutic Activities,Therapeutic Exercises Modalities Cold Pack/Ice Massage,Hot Packs Next Visit Focus/Plan Next Note Type Treatment Note Next Visit Plan Initiate gentle lumbar ROM in supine and seated positions as tolerated; ther ex for B hip strength in supine; modalities as indicated for pain management.
--- NOTE | 2021-03-24 17:26 | PT.OPPOC ---
Physical, Occupational & Speech Therapy At [facility] Current Diagnoses Spinal stenosis, lumbar region with neurogenic claudication (03/24/21) Difficulty in walking, not elsewhere classified (03/24/21) Abnormal posture (03/24/21) Visit Care Team Role Provider Type Danny Lipscomb MD Primary Care Provider Physician Specialty: Internal Medicine Address: [address] [place] [address], [facility] [address], [place], [address] Email: [email or web address] Pedro Field MD Attending Provider Physician Referring Provider Specialty: Orthopedics Address: [address] [place] [address], [id number] Email: [email or web address] Plan Of Care PT-OP-T Assessment and Plan Start: 03/23/21 15:16 Freq: Status: Active Protocol: Document 03/24/21 16:00 AW (Rec: 03/24/21 17:25 AW [email or web address]) Physical Therapy Assessment Rehab Potential Rehabilitation Potential Good Evaluation Complexity Number of Personal Factors/Comorbidities 1-2 Number of Body Systems Impaired 3 Clinical Presentation at Evaluation Stable Impairments Impairments Balance,Functional Activities, Gait,Pain,Posture,ROM, Sensation,Soft Tissue Mobility ,Strength Goals Three Impairment strength Short Term Goal (STG) Pt will complete 10 reps on 30 second sit to stand test without use of UE's as a measure of improved BLE strength. STG Duration 04/24/21 Director Marketing Analytics Goal (LTG) Pt will complete 15 reps on 30 second sit to stand test without use of UE's as a measure of improved BLE strength. LTG Duration 05/24/21 Two Impairment lacks HEP Short Term Goal (STG) Pt will be educated in positions of comfort to manage back pain and improve posture . STG Duration 04/24/21 Half-Way Goal (LTG) Pt will be independent with HEP for long-term management of back pain symptoms. One Impairment limited standing/walking tolerance Half-Way Goal (LTG) Pt will walk or stand for one hour without increase in baseline pain to return to walking program for exercise LTG Duration 05/24/21 Assessment Summary Assessment Leo is a 75 yo man seen for outpatient PT evaluation with complaints of low back pain which is worse with prolonged standing and walking. He denies any symptoms in his legs. History of back pain likely predisposes pt to current complaints and he admits the pain has worsened gradually over the past several months to a year. He presents with painful lumbar extension and left side- bending, hinge at mid-lumbar spine, and weakness in hip abduction and extension. Pt should benefit from skilled physical therapy to address postural and strength deficits to improve pain-free range of motion and tolerance for walking and standing. Physical Therapy Plan Frequency and Duration Frequency of Treatment 1-2x/week Duration of Treatment 2 months Plan of Care Start Date 03/24/21 Plan of Care End Date 05/24/21 Therapeutic Interventions Therapeutic Interventions Balance Training,Gait Training ,Home Exercise Program,Manual Therapy,Neuromuscular Re- education,Patient/Caregiver Education,Self-Care/Home Management,Soft Tissue Mobilization,Therapeutic Activities,Therapeutic Exercises Modalities Cold Pack/Ice Massage,Hot Packs Next Visit Focus/Plan Next Note Type Treatment Note Next Visit Plan Initiate gentle lumbar ROM in supine and seated positions as tolerated; ther ex for B hip strength in supine; modalities as indicated for pain management. Plan of Care Dates Plan of Care Start Date 03/24/21 Plan of Care End Date 05/24/21 Electronically Signed by: Debbi Kamara, PT 03/24/21 [id number] Please Sign and Return: I have reviewed this Plan of Care and certify that the skilled therapy services above are required to meet the patient?s needs. Physician Signature Date Printed Name and Credentials Clinical Instructor Signature Printed Name and Credentials
--- NOTE | 2021-03-29 15:26 | PT.OTN ---
Current Diagnoses Spinal stenosis, lumbar region with neurogenic claudication (03/29/21) Difficulty in walking, not elsewhere classified (03/29/21) Abnormal posture (03/29/21) Physical Therapy Treatment Note PT-OP-A Visit Information Start: 03/23/21 15:16 Freq: Status: Active Protocol: Document 03/29/21 14:26 SP (Rec: 03/29/21 16:06 SP [id number]) Out-Patient Physical Therapy Visit Information Visit Information Visit Type Treatment Note Visit Note Stand on L side with slow clear speaking. DERRICK Bowles attended and assisted DRAINLAYER Malgorzata on pt education alignment, self STMs and stretching, supervised by DRAINLAYER. Visit Start Time 14:26 Visit Stop Time 15:26 Total Visit Minutes 60 Visit Number 2 Number of DRAINLAYER Visits 1 Evaluation Information Evaluation Date 03/24/21 Precautions Precautions Decreased hearing on L>R side. PT-OP-B Current Condition Start: 03/23/21 15:16 Freq: Status: Active Protocol: Document 03/24/21 16:00 AW (Rec: 03/23/21 15:26 AW [id number]) Current Condition History of Current Condition Onset Date 10 months Current Complaints low back pain History of Current Condition Pt states he has low back pain when standing or trying to go for a walk. Pressure builds up and the only way to relieve it is to sit down. He can stand or walk 45 minutes at the most. He lives in [place] and [place] or around [place] neighborhood. He has no problem picking items up from the floor. Sleeping on his back tends to exacerbate his pain; he tends to sleep on his left side. Sitting and Motrin relieve his pain. Pt prefers to use Motrin sparingly and states he is most likely to use it if he needs to ensure a good nights' sleep. Pt has long history of neuropathy in bilateral feet but reports no trouble with balance or falls. He does admit that he attends to his gait initiation by standing up square, turning, and then beginning to walk as opposed to getting up and going without thinking about it. Pt states he wears 2-3 pair of socks with shoes at nearly all times. Extra socks keep his feet warm and protect him from injury since he has absent light touch sensation especially on the bottoms of his feet. He also has history of PAD but recent ankle- brachial index was >1.5 bilaterally. Pt had a sleep study recently and CPAP was recommended. Pt is waiting on equipment to arrive. 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 The gloves keep swelling down and help with pain. Prior Treatments and Tests - X-rays 01/13/21 with findings of mild to moderate bilateral hip OA and multilevel spondylosis with no significant change since June 2017. - MRI lumbar spine 01/21/21: 1 . Multilevel degenerative disc and facet disease, as well as ligamentum flavum hypertrophy and epidural lipomatosis. 2. Multilevel canal stenoses, worst at L3-L4 and L4-L5, where there are severe canal stenosis. 3. Multilevel foraminal stenoses, worst at L4-L5 and L5-S1 where there is associated intraforaminal nerve root compression. Recommend correlation with clinical symptoms to ascertain relevance of these findings. - PT for bilateral MCP ROM and sensation disturbance in 2019 . Future Testing and Treatments Planned None identified Treatment Goals Patient/Caregiver Goals Avoid surgery. Improve standing and walking tolerance . Reduce back pain. Improve sleep. Current Functional Impairments (Reported) Functional Limitations- Mobility/Gait Poor tolerance for walking and standing Functional Limitations- Work/School Unable to work with hands as well as he used to due to arthritis and neuropathy. Personal Factors Other Personal Factors That May Effect (+) prior experience with PT Therapy/Recovery (+) motivated to avoid invasive treatment PT-OP-C Subjective Start: 03/23/21 15:16 Freq: Status: Active Protocol: Document 03/29/21 14:26 SP (Rec: 03/29/21 16:06 SP [id number]) OP-PT Subjective Patient Comments Patient Comments Pt states has back pain more when walking and needs to rest , which give immediate relief. Wants to get back to walking longer distances. v PT-OP-F Manual Assessment Start: 03/23/21 15:16 Freq: Status: Active Protocol: Document 03/24/21 16:00 AW (Rec: 03/24/21 17:01 AW [email or web address]) Manual Assessments Soft Tissue Assessment Soft Tissue Mobility Assessment Hamstring extensibility limited in SLR - lacking 15-20 degrees bilaterally. Joint Mobility Assessment Joint Mobility Assessment Hip internal rotation severely limited bilaterally and left end-range IR reproduces back pain. Lumbar PA's restricted below ~L3 with appreciable hinge at this level. PT-OP-G Mobility & Gait Start: 03/23/21 15:16 Freq: Status: Active Protocol: Document 03/24/21 16:00 AW (Rec: 03/24/21 17:01 AW [email or web address]) OP Gait Assessment Comments Gait Comments Gait is mildly antalgic with wide DAYLIN. Pt has flat feet and wears SuperFeet in his shoes which are worn more on the lateral aspects. Pt walks with increased right trunk rotation. PT-OP-H Neuro Start: 03/23/21 15:16 Freq: Status: Active Protocol: Document 03/24/21 16:00 AW (Rec: 03/24/21 17:01 AW [email or web address]) Sensation Evaluation Gross Sensation Gross Sensation Left LE Impaired,Right LE Impaired Sensation Description Numbness Comments Summary Comments Pt has history of neuropathy and lacks light touch sensation in bilateral feet. Pt can not feel deep pressure in either foot. Sensitivity to deep pressure begins at level of malleoli. Deep Tendon Reflex & Clonus Assessment Deep Tendon Reflex Bilateral Achilles Deep Tendon Reflex 1+ Diminished Bilateral Patellar Deep Tendon Reflex 1+ Diminished PT-OP-J Posture/Palpation/Skin Start: 03/23/21 15:16 Freq: Status: Active Protocol: Document 03/24/21 16:00 AW (Rec: 03/24/21 17:01 AW [email or web address]) Posture Evaluation Position Standing Evaluation View Lateral Comments Posture Comments Flat lumbar spine with appreciable hinge at ~L3. PT-OP-K Range of Motion Start: 03/23/21 15:16 Freq: Status: Active Protocol: Document 03/24/21 16:00 AW (Rec: 03/24/21 17:08 AW [email or web address]) Lumbar Spine Range of Motion Lumbar Spine Active Degrees Testing Position Standing Flexion 75 Extension 10 Comments B rotation WNL. Left lateral flexion reproduces low back pain. Pt loses balance with reaching sideways both directions. Hip Goniometric Range of Motion Hip bilateral Comments Internal rotation <10 degrees bilaterally in supine and left hip IR reproduces back pain. Flexion mildly limited by habitus. Extension reproduces back pain. PT-OP-L Special Tests Start: 03/23/21 15:16 Freq: Status: Active Protocol: Document 03/24/21 16:00 AW (Rec: 03/24/21 17:08 AW [email or web address]) Special Tests Lumbar Spine Special Tests Slump Test Results negative Hip Special Tests Scour Test Test Results negative PT-OP-M Strength Start: 03/23/21 15:16 Freq: Status: Active Protocol: Document 03/24/21 16:00 AW (Rec: 03/24/21 17:08 AW [email or web address]) Hip Strength Hip Manual Muscle Testing bilateral Flexion (L2) 4 Good Extension (S1) 4 Good Abduction 4 Good External Rotation 4+ Good+ Internal Rotation 4+ Good+ PT-OP-Q Treatments Start: 03/23/21 15:16 Freq: Status: Active Protocol: Document 03/29/21 14:26 SP (Rec: 03/29/21 16:06 SP [id number]) Therapeutic Exercises Supine Exercises Hs stretch w/ AP Supine Exercise Name added to HEP Side bilateral Equipment Used grasp behind thigh Reps/Minutes 30sec x2 Comments good feedback response piriformis stretch Supine Exercise Name added to HEP Side bilateral Reps/Minutes 30 x2 Comments good feedback response pelvic tilts Supine Exercise Name added to HEP: tailbone toward ceiling w/ breath Resistance AROM Reps/Minutes extra time spent througout tx for performance Comments improved toward end of tx after max cues TA draw in Supine Exercise Name hooklying added to HEP Reps/Minutes 5 sec hold x10 Comments difficult- cued tailbone toward ceiling and breath Sitting Exercises piriformis stretch Sitting Exercise Name added to HEP Side bilateral Reps/Minutes 30 x3 Comments good feedback- better stronger stretch than supine lumbar flexion stretch Sitting Exercise Name added to HEP Equipment Used 18 chair Reps/Minutes 30 sec hold x3 Comments cued wide stance, chest lift forward flexion- good response Standing Exercises self STMs Standing Exercise Name paraspinal, piriformis Equipment Used tennis ball roll at wall Reps/Minutes 1min total Comments responded well- better than manual reported Manual Therapy Treatment Soft Tissue Mobilization STMs Body Location R paraspinal, QL, glut med, pirirformis Mobilization Type Cross-Friction,Strumming, Sustained Pressure Intensity/Depth Moderate Body Position Sidelying Comments pillows between LEs- performing pillow assist between LEs and LTR manual Comments manual- little discomfort over R SI during facilitation anterior R pelvis and trunk rotation back Self-Care/Home Management Treatment Education Patient Education Home Exercise Program,Pain Management,Posture Other Education Extra time spent for lumbar stenosis using spinal column model, TA strengthening and alignment pre progressing to decrease LS recruitment. Better understanding. PT-OP-T Assessment and Plan Start: 10/19/21 15:16 Freq: Status: Active Protocol: Document 03/29/21 14:26 SP (Rec: 03/29/21 16:06 SP [id number]) Physical Therapy Assessment Goals Three Impairment strength Short Term Goal (STG) Pt will complete 10 reps on 30 second sit to stand test without use of UE's as a measure of improved BLE strength. STG Duration 04/24/21 Plating Technician Goal (LTG) Pt will complete 15 reps on 30 second sit to stand test without use of UE's as a measure of improved BLE strength. LTG Duration 05/24/21 Two Impairment lacks HEP Short Term Goal (STG) Pt will be educated in positions of comfort to manage back pain and improve posture . STG Duration 04/24/21 Detention Goal (LTG) Pt will be independent with HEP for long-term management of back pain symptoms. One Impairment limited standing/walking tolerance Detention Goal (LTG) Pt will walk or stand for one hour without increase in baseline pain to return to walking program for exercise LTG Duration 05/24/21 Assessment Summary Assessment Pt hard time hearing, requires talk on R side, slow and clearly to allow processing. Pt required extra time spent for TA training, pelvic tilts, tends to hold breath, feedback under LS - best with tailbone tuck toward ceiling cuing. Also showed model of spine for self awareness of findings on xray for carryover will also focus on alignment, posture eventually. Initiated stretching and self STMs with good feedback response. Physical Therapy Plan Frequency and Duration Frequency of Treatment 1-2x/week Duration of Treatment 2 months Plan of Care Start Date 03/24/21 Plan of Care End Date 05/24/21 Therapeutic Interventions Therapeutic Interventions Balance Training,Gait Training ,Home Exercise Program,Manual Therapy,Neuromuscular Re- education,Patient/Caregiver Education,Self-Care/Home Management,Soft Tissue Mobilization,Therapeutic Activities,Therapeutic Exercises Modalities Cold Pack/Ice Massage,Hot Packs Next Visit Focus/Plan Next Note Type Treatment Note Next Visit Plan Check standing trunk alignment , review TA, pelvic tilts. POC: Initiate gentle lumbar ROM in supine and seated positions as tolerated; ther ex for B hip strength in supine; modalities as indicated for pain management.
--- NOTE | 2021-03-31 16:28 | PT.OTN ---
Current Diagnoses Spinal stenosis, lumbar region with neurogenic claudication (03/31/21) Difficulty in walking, not elsewhere classified (03/31/21) Abnormal posture (03/31/21) Physical Therapy Treatment Note PT-OP-A Visit Information Start: 03/23/21 15:16 Freq: Status: Active Protocol: Document 03/31/21 16:02 AW (Rec: 03/31/21 16:27 AW [email or web address]) Out-Patient Physical Therapy Visit Information Visit Information Visit Type Treatment Note Visit Start Time 15:18 Visit Stop Time 16:02 Total Visit Minutes 44 Visit Number 3 Number of PROPERTY DISPOSAL OFFICER Visits 0 Precautions Precautions Better hearing in right ear. PT-OP-B Current Condition Start: 03/23/21 15:16 Freq: Status: Active Protocol: Document 03/24/21 16:00 AW (Rec: 03/23/21 15:26 AW [id number]) Current Condition History of Current Condition Onset Date 10 months Current Complaints low back pain History of Current Condition Pt states he has low back pain when standing or trying to go for a walk. Pressure builds up and the only way to relieve it is to sit down. He can stand or walk 45 minutes at the most. He lives in [place] and [place] or around [place] neighborhood. He has no problem picking items up from the floor. Sleeping on his back tends to exacerbate his pain; he tends to sleep on his left side. Sitting and Motrin relieve his pain. Pt prefers to use Motrin sparingly and states he is most likely to use it if he needs to ensure a good nights' sleep. Pt has long history of neuropathy in bilateral feet but reports no trouble with balance or falls. He does admit that he attends to his gait initiation by standing up square, turning, and then beginning to walk as opposed to getting up and going without thinking about it. Pt states he wears 2-3 pair of socks with shoes at nearly all times. Extra socks keep his feet warm and protect him from injury since he has absent light touch sensation especially on the bottoms of his feet. He also has history of PAD but recent ankle- brachial index was >1.5 bilaterally. Pt had a sleep study recently and CPAP was recommended. Pt is waiting on equipment to arrive. 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 The gloves keep swelling down and help with pain. Prior Treatments and Tests - X-rays 01/13/21 with findings of mild to moderate bilateral hip OA and multilevel spondylosis with no significant change since June 2017. - MRI lumbar spine 01/21/21: 1 . Multilevel degenerative disc and facet disease, as well as ligamentum flavum hypertrophy and epidural lipomatosis. 2. Multilevel canal stenoses, worst at L3-L4 and L4-L5, where there are severe canal stenosis. 3. Multilevel foraminal stenoses, worst at L4-L5 and L5-S1 where there is associated intraforaminal nerve root compression. Recommend correlation with clinical symptoms to ascertain relevance of these findings. - PT for bilateral MCP ROM and sensation disturbance in 2019 . Future Testing and Treatments Planned None identified Treatment Goals Patient/Caregiver Goals Avoid surgery. Improve standing and walking tolerance . Reduce back pain. Improve sleep. Current Functional Impairments (Reported) Functional Limitations- Mobility/Gait Poor tolerance for walking and standing Functional Limitations- Work/School Unable to work with hands as well as he used to due to arthritis and neuropathy. Personal Factors Other Personal Factors That May Effect (+) prior experience with PT Therapy/Recovery (+) motivated to avoid invasive treatment PT-OP-C Subjective Start: 03/23/21 15:16 Freq: Status: Active Protocol: Document 03/31/21 16:02 AW (Rec: 03/31/21 16:27 AW [email or web address]) OP-PT Subjective Patient Comments Patient Comments Pt has been trying home exercises, struggles with pelvic tilt and would like more instruction. PT-OP-F Manual Assessment Start: 03/23/21 15:16 Freq: Status: Active Protocol: Document 03/24/21 16:00 AW (Rec: 03/24/21 17:01 AW [email or web address]) Manual Assessments Soft Tissue Assessment Soft Tissue Mobility Assessment Hamstring extensibility limited in SLR - lacking 15-20 degrees bilaterally. Joint Mobility Assessment Joint Mobility Assessment Hip internal rotation severely limited bilaterally and left end-range IR reproduces back pain. Lumbar PA's restricted below ~L3 with appreciable hinge at this level. PT-OP-G Mobility & Gait Start: 03/23/21 15:16 Freq: Status: Active Protocol: Document 03/24/21 16:00 AW (Rec: 03/24/21 17:01 AW [email or web address]) OP Gait Assessment Comments Gait Comments Gait is mildly antalgic with wide DAYLIN. Pt has flat feet and wears SuperFeet in his shoes which are worn more on the lateral aspects. Pt walks with increased right trunk rotation. PT-OP-H Neuro Start: 03/23/21 15:16 Freq: Status: Active Protocol: Document 03/24/21 16:00 AW (Rec: 03/24/21 17:01 AW [email or web address]) Sensation Evaluation Gross Sensation Gross Sensation Left LE Impaired,Right LE Impaired Sensation Description Numbness Comments Summary Comments Pt has history of neuropathy and lacks light touch sensation in bilateral feet. Pt can not feel deep pressure in either foot. Sensitivity to deep pressure begins at level of malleoli. Deep Tendon Reflex & Clonus Assessment Deep Tendon Reflex Bilateral Achilles Deep Tendon Reflex 1+ Diminished Bilateral Patellar Deep Tendon Reflex 1+ Diminished PT-OP-J Posture/Palpation/Skin Start: 03/23/21 15:16 Freq: Status: Active Protocol: Document 03/24/21 16:00 AW (Rec: 03/24/21 17:01 AW [email or web address]) Posture Evaluation Position Standing Evaluation View Lateral Comments Posture Comments Flat lumbar spine with appreciable hinge at ~L3. PT-OP-K Range of Motion Start: 03/23/21 15:16 Freq: Status: Active Protocol: Document 03/24/21 16:00 AW (Rec: 03/24/21 17:08 AW [email or web address]) Lumbar Spine Range of Motion Lumbar Spine Active Degrees Testing Position Standing Flexion 75 Extension 10 Comments B rotation WNL. Left lateral flexion reproduces low back pain. Pt loses balance with reaching sideways both directions. Hip Goniometric Range of Motion Hip bilateral Comments Internal rotation <10 degrees bilaterally in supine and left hip IR reproduces back pain. Flexion mildly limited by habitus. Extension reproduces back pain. PT-OP-L Special Tests Start: 03/23/21 15:16 Freq: Status: Active Protocol: Document 03/24/21 16:00 AW (Rec: 03/24/21 17:08 AW [email or web address]) Special Tests Lumbar Spine Special Tests Slump Test Results negative Hip Special Tests Scour Test Test Results negative PT-OP-M Strength Start: 03/23/21 15:16 Freq: Status: Active Protocol: Document 03/24/21 16:00 AW (Rec: 03/24/21 17:08 AW [email or web address]) Hip Strength Hip Manual Muscle Testing bilateral Flexion (L2) 4 Good Extension (S1) 4 Good Abduction 4 Good External Rotation 4+ Good+ Internal Rotation 4+ Good+ PT-OP-Q Treatments Start: 03/23/21 15:16 Freq: Status: Active Protocol: Document 03/31/21 16:02 AW (Rec: 03/31/21 16:27 AW [email or web address]) Therapeutic Exercises Supine Exercises SKTC/DKTC Supine Exercise Name SKTC/DKTC Reps/Minutes 30 SH x 4 Comments good relief to low back pressure piriformis stretch Supine Exercise Name HEP review Side bilateral Reps/Minutes 30 x2 Comments right seems tighter than left pelvic tilts Resistance AROM Equipment Used nylon strap under low back Comments cued smash your low back to the table; PT pulls on strap for tact feedbac TA draw in Supine Exercise Name progressed to BKFO and single leg march Comments pt manages BKFO, struggles to keep back flat with SL march Sitting Exercises lumbar flexion stretch Sitting Exercise Name HEP review Equipment Used 18 chair Reps/Minutes 30 sec hold x3 Comments cued wide stance, chest lift forward flexion- good response Standing Exercises self STMs Standing Exercise Name paraspinal Equipment Used racquetball roll at wall Reps/Minutes 1min total Comments reviewed for ball placement Self-Care/Home Management Treatment Education Patient Education Home Exercise Program,Posture Other Education Added flexion-based exercises for home (see copy scanned to EMR). Also educated pt on need for better hydration and attention to lightheadedness when changing positions. PT-OP-T Assessment and Plan Start: 03/23/21 15:16 Freq: Status: Active Protocol: Document 03/31/21 16:02 AW (Rec: 03/31/21 16:27 AW [email or web address]) Physical Therapy Assessment Goals Three Impairment strength Short Term Goal (STG) Pt will complete 10 reps on 30 second sit to stand test without use of UE's as a measure of improved BLE strength. STG Duration 04/24/21 Penitentiary Goal (LTG) Pt will complete 15 reps on 30 second sit to stand test without use of UE's as a measure of improved BLE strength. LTG Duration 05/24/21 Two Impairment lacks HEP Short Term Goal (STG) Pt will be educated in positions of comfort to manage back pain and improve posture . STG Duration 04/24/21 Penitentiary Goal (LTG) Pt will be independent with HEP for long-term management of back pain symptoms. One Impairment limited standing/walking tolerance Medicare Sales Representative Goal (LTG) Pt will walk or stand for one hour without increase in baseline pain to return to walking program for exercise LTG Duration 05/24/21 Assessment Summary Assessment Pt responds well today to flexion-based exercises to relieve low back pressure. Reviewed wall/ball STM for ball placement. Also spent time educating pt on orthostatic hypotension today in response to report that he felt lightheaded earlier today when getting up from the floor after exercise. Discussed taking time with position changes and improving hydration. Orthostatic BP series in clinic was negative (supine 146/79 HR 62, sitting 149/85 HR 76, standing 154/89 HR 73). Physical Therapy Plan Frequency and Duration Frequency of Treatment 1-2x/week Duration of Treatment 2 months Plan of Care Start Date 03/24/21 Plan of Care End Date 05/24/21 Therapeutic Interventions Therapeutic Interventions Balance Training,Gait Training ,Home Exercise Program,Manual Therapy,Neuromuscular Re- education,Patient/Caregiver Education,Self-Care/Home Management,Soft Tissue Mobilization,Therapeutic Activities,Therapeutic Exercises Modalities Cold Pack/Ice Massage,Hot Packs Next Visit Focus/Plan Next Note Type Treatment Note Next Visit Plan Continue flexion-based ther ex , follow up on report of orthostatic hypotension, ther ex for B hip strength.
--- NOTE | 2021-04-06 15:34 | PT-OP ANOTE ---
Pt no-showed 1515 appointment today. Called and left VM regarding next appointment on 04/08 at 1515.
--- NOTE | 2021-04-08 15:23 | PT.OTN ---
Current Diagnoses Spinal stenosis, lumbar region with neurogenic claudication (04/08/21) Difficulty in walking, not elsewhere classified (04/08/21) Abnormal posture (04/08/21) Physical Therapy Treatment Note PT-OP-A Visit Information Start: 03/23/21 15:16 Freq: Status: Active Protocol: Document 04/08/21 14:30 AW (Rec: 04/08/21 14:33 AW [id number]) Out-Patient Physical Therapy Visit Information Visit Information Visit Type Treatment Note Visit Start Time 13:49 Visit Stop Time 14:30 Total Visit Minutes 41 Visit Number 4 Number of VIDEO LIBRARY ASSISTANT Visits 0 Precautions Precautions Better hearing in right ear. PT-OP-B Current Condition Start: 03/23/21 15:16 Freq: Status: Active Protocol: Document 03/24/21 16:00 AW (Rec: 03/23/21 15:26 AW [id number]) Current Condition History of Current Condition Onset Date 10 months Current Complaints low back pain History of Current Condition Pt states he has low back pain when standing or trying to go for a walk. Pressure builds up and the only way to relieve it is to sit down. He can stand or walk 45 minutes at the most. He lives in [place] and [place] around [place] neighborhood. He has no problem picking items up from the floor. Sleeping on his back tends to exacerbate his pain; he tends to sleep on his left side. Sitting and Motrin relieve his pain. Pt prefers to use Motrin sparingly and states he is most likely to use it if he needs to ensure a good nights' sleep. Pt has long history of neuropathy in bilateral feet but reports no trouble with balance or falls. He does admit that he attends to his gait initiation by standing up square, turning, and then beginning to walk as opposed to getting up and going without thinking about it. Pt states he wears 2-3 pair of socks with shoes at nearly all times. Extra socks keep his feet warm and protect him from injury since he has absent light touch sensation especially on the bottoms of his feet. He also has history of PAD but recent ankle- brachial index was >1.5 bilaterally. Pt had a sleep study recently and CPAP was recommended. Pt is waiting on equipment to arrive. 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 The gloves keep swelling down and help with pain. Prior Treatments and Tests - X-rays 01/13/21 with findings of mild to moderate bilateral hip OA and multilevel spondylosis with no significant change since June 2017. - MRI lumbar spine 01/21/21: 1 . Multilevel degenerative disc and facet disease, as well as ligamentum flavum hypertrophy and epidural lipomatosis. 2. Multilevel canal stenoses, worst at L3-L4 and L4-L5, where there are severe canal stenosis. 3. Multilevel foraminal stenoses, worst at L4-L5 and L5-S1 where there is associated intraforaminal nerve root compression. Recommend correlation with clinical symptoms to ascertain relevance of these findings. - PT for bilateral MCP ROM and sensation disturbance in 2019 . Future Testing and Treatments Planned None identified Treatment Goals Patient/Caregiver Goals Avoid surgery. Improve standing and walking tolerance . Reduce back pain. Improve sleep. Current Functional Impairments (Reported) Functional Limitations- Mobility/Gait Poor tolerance for walking and standing Functional Limitations- Work/School Unable to work with hands as well as he used to due to arthritis and neuropathy. Personal Factors Other Personal Factors That May Effect (+) prior experience with PT Therapy/Recovery (+) motivated to avoid invasive treatment PT-OP-C Subjective Start: 03/23/21 15:16 Freq: Status: Active Protocol: Document 04/08/21 14:30 AW (Rec: 04/08/21 14:33 AW [id number]) OP-PT Subjective Patient Comments Patient Comments Pt had COVID vaccine booster on Monday and has been feeling sluggish. Slow and gradual improvement in back pain symptoms. Still waiting on CPAP. Patient Reported Progress Improving PT-OP-F Manual Assessment Start: 03/23/21 15:16 Freq: Status: Active Protocol: Document 03/24/21 16:00 AW (Rec: 03/24/21 17:01 AW [email or web address]) Manual Assessments Soft Tissue Assessment Soft Tissue Mobility Assessment Hamstring extensibility limited in SLR - lacking 15-20 degrees bilaterally. Joint Mobility Assessment Joint Mobility Assessment Hip internal rotation severely limited bilaterally and left end-range IR reproduces back pain. Lumbar PA's restricted below ~L3 with appreciable hinge at this level. PT-OP-G Mobility & Gait Start: 03/23/21 15:16 Freq: Status: Active Protocol: Document 03/24/21 16:00 AW (Rec: 03/24/21 17:01 AW [email or web address]) OP Gait Assessment Comments Gait Comments Gait is mildly antalgic with wide DAYLIN. Pt has flat feet and wears SuperFeet in his shoes which are worn more on the lateral aspects. Pt walks with increased right trunk rotation. PT-OP-H Neuro Start: 03/23/21 15:16 Freq: Status: Active Protocol: Document 03/24/21 16:00 AW (Rec: 03/24/21 17:01 AW [email or web address]) Sensation Evaluation Gross Sensation Gross Sensation Left LE Impaired,Right LE Impaired Sensation Description Numbness Comments Summary Comments Pt has history of neuropathy and lacks light touch sensation in bilateral feet. Pt can not feel deep pressure in either foot. Sensitivity to deep pressure begins at level of malleoli. Deep Tendon Reflex & Clonus Assessment Deep Tendon Reflex Bilateral Achilles Deep Tendon Reflex 1+ Diminished Bilateral Patellar Deep Tendon Reflex 1+ Diminished PT-OP-J Posture/Palpation/Skin Start: 03/23/21 15:16 Freq: Status: Active Protocol: Document 03/24/21 16:00 AW (Rec: 03/24/21 17:01 AW [email or web address]) Posture Evaluation Position Standing Evaluation View Lateral Comments Posture Comments Flat lumbar spine with appreciable hinge at ~L3. PT-OP-K Range of Motion Start: 03/23/21 15:16 Freq: Status: Active Protocol: Document 03/24/21 16:00 AW (Rec: 03/24/21 17:08 AW [email or web address]) Lumbar Spine Range of Motion Lumbar Spine Active Degrees Testing Position Standing Flexion 75 Extension 10 Comments B rotation WNL. Left lateral flexion reproduces low back pain. Pt loses balance with reaching sideways both directions. Hip Goniometric Range of Motion Hip bilateral Comments Internal rotation <10 degrees bilaterally in supine and left hip IR reproduces back pain. Flexion mildly limited by habitus. Extension reproduces back pain. PT-OP-L Special Tests Start: 03/23/21 15:16 Freq: Status: Active Protocol: Document 03/24/21 16:00 AW (Rec: 03/24/21 17:08 AW [email or web address]) Special Tests Lumbar Spine Special Tests Slump Test Results negative Hip Special Tests Scour Test Test Results negative PT-OP-M Strength Start: 03/23/21 15:16 Freq: Status: Active Protocol: Document 03/24/21 16:00 AW (Rec: 03/24/21 17:08 AW [email or web address]) Hip Strength Hip Manual Muscle Testing bilateral Flexion (L2) 4 Good Extension (S1) 4 Good Abduction 4 Good External Rotation 4+ Good+ Internal Rotation 4+ Good+ PT-OP-Q Treatments Start: 03/23/21 15:16 Freq: Status: Active Protocol: Document 04/08/21 14:30 AW (Rec: 04/08/21 14:33 AW [id number]) Cardio Equipment Recumbent Elliptical (iCentera) Duration (Minutes) 6 Resistance 2 Seat Position 11 Other >30 rpm Therapeutic Exercises Supine Exercises LTR with T ball Supine Exercise Name LTR with T ball Equipment Used 55 cm ball hip adduction squeeze Supine Exercise Name hip adduction squeeze Side bilateral Equipment Used sm green ball Reps/Minutes 2x10 supine clamshell Supine Exercise Name supine clam Side bilateral SKTC/DKTC Supine Exercise Name SKTC/DKTC Reps/Minutes 30 SH x 4 Comments prep for activity; pt reports good relief TA draw in Equipment Used nylon strap under low back for tactile feedback Reps/Minutes 10 min Comments improved TrA activation with SL march today Sitting Exercises lumbar flexion stretch Sitting Exercise Name HEP review Equipment Used 18 chair Reps/Minutes 30 sec hold x3 Comments cued wide stance, chest lift forward flexion- good response Self-Care/Home Management Treatment Education Patient Education Home Exercise Program,Posture Other Education Added supine hip strengthening to HEP. Reinforced education on importance of hydration to manage orthostatic hypotension . PT-OP-T Assessment and Plan Start: 03/23/21 15:16 Freq: Status: Active Protocol: Document 04/08/21 14:30 AW (Rec: 04/08/21 15:23 AW [email or web address]) Physical Therapy Assessment Goals Three Impairment strength Short Term Goal (STG) Pt will complete 10 reps on 30 second sit to stand test without use of UE's as a measure of improved BLE strength. STG Duration 04/24/21 Assembly Adjuster Goal (LTG) Pt will complete 15 reps on 30 second sit to stand test without use of UE's as a measure of improved BLE strength. LTG Duration 05/24/21 Two Impairment lacks HEP Short Term Goal (STG) Pt will be educated in positions of comfort to manage back pain and improve posture . STG Duration 04/24/21 [facility] Goal (LTG) Pt will be independent with HEP for long-term management of back pain symptoms. One Impairment limited standing/walking tolerance [facility] Goal (LTG) Pt will walk or stand for one hour without increase in baseline pain to return to walking program for exercise LTG Duration 05/24/21 Assessment Summary Assessment Leo was sluggish today after receiving COVID booster earlier in the week. Progressed core stability slowly and initiated hip strengthening in supine. Physical Therapy Plan Frequency and Duration Frequency of Treatment 1-2x/week Duration of Treatment 2 months Plan of Care Start Date 03/24/21 Plan of Care End Date 05/24/21 Therapeutic Interventions Therapeutic Interventions Balance Training,Gait Training ,Home Exercise Program,Manual Therapy,Neuromuscular Re- education,Patient/Caregiver Education,Self-Care/Home Management,Soft Tissue Mobilization,Therapeutic Activities,Therapeutic Exercises Modalities Cold Pack/Ice Massage,Hot Packs Next Visit Focus/Plan Next Note Type Treatment Note Next Visit Plan Continue flexion-based ther ex , follow up on report of orthostatic hypotension, ther ex for B hip strength.
--- NOTE | 2021-04-13 16:23 | PT.OTN ---
Current Diagnoses Spinal stenosis, lumbar region with neurogenic claudication (04/13/21) Difficulty in walking, not elsewhere classified (04/13/21) Abnormal posture (04/13/21) Physical Therapy Treatment Note PT-OP-A Visit Information Start: 03/23/21 15:16 Freq: Status: Active Protocol: Document 04/13/21 16:00 AW (Rec: 04/13/21 16:20 AW [id number]) Out-Patient Physical Therapy Visit Information Visit Information Visit Start Time 15:19 Visit Stop Time 16:00 Total Visit Minutes 41 Visit Number 5 Number of WEB WORKER Visits 0 Precautions Precautions Better hearing in right ear. PT-OP-B Current Condition Start: 03/23/21 15:16 Freq: Status: Active Protocol: Document 03/24/21 16:00 AW (Rec: 03/23/21 15:26 AW [id number]) Current Condition History of Current Condition Onset Date 10 months Current Complaints low back pain History of Current Condition Pt states he has low back pain when standing or trying to go for a walk. Pressure builds up and the only way to relieve it is to sit down. He can stand or walk 45 minutes at the most. He lives in [place] and [place] or around his neighborhood. He has no problem picking items up from the floor. Sleeping on his back tends to exacerbate his pain; he tends to sleep on his left side. Sitting and Motrin relieve his pain. Pt prefers to use Motrin sparingly and states he is most likely to use it if he needs to ensure a good nights' sleep. Pt has long history of neuropathy in bilateral feet but reports no trouble with balance or falls. He does admit that he attends to his gait initiation by standing up square, turning, and then beginning to walk as opposed to getting up and going without thinking about it. Pt states he wears 2-3 pair of socks with shoes at nearly all times. Extra socks keep his feet warm and protect him from injury since he has absent light touch sensation especially on the bottoms of his feet. He also has history of PAD but recent ankle- brachial index was >1.5 bilaterally. Pt had a sleep study recently and CPAP was recommended. Pt is waiting on equipment to arrive. 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 The gloves keep swelling down and help with pain. Prior Treatments and Tests - X-rays 01/13/21 with findings of mild to moderate bilateral hip OA and multilevel spondylosis with no significant change since June 2017. - MRI lumbar spine 01/21/21: 1 . Multilevel degenerative disc and facet disease, as well as ligamentum flavum hypertrophy and epidural lipomatosis. 2. Multilevel canal stenoses, worst at L3-L4 and L4-L5, where there are severe canal stenosis. 3. Multilevel foraminal stenoses, worst at L4-L5 and L5-S1 where there is associated intraforaminal nerve root compression. Recommend correlation with clinical symptoms to ascertain relevance of these findings. - PT for bilateral MCP ROM and sensation disturbance in 2019 . Future Testing and Treatments Planned None identified Treatment Goals Patient/Caregiver Goals Avoid surgery. Improve standing and walking tolerance . Reduce back pain. Improve sleep. Current Functional Impairments (Reported) Functional Limitations- Mobility/Gait Poor tolerance for walking and standing Functional Limitations- Work/School Unable to work with hands as well as he used to due to arthritis and neuropathy. Personal Factors Other Personal Factors That May Effect (+) prior experience with PT Therapy/Recovery (+) motivated to avoid invasive treatment PT-OP-C Subjective Start: 03/23/21 15:16 Freq: Status: Active Protocol: Document 04/13/21 16:00 AW (Rec: 04/13/21 16:20 AW [id number]) OP-PT Subjective Patient Comments Patient Comments Pt is feeling better since COVID booster. He notes his exercises help with pain but he still has pain and stiffness in the morning. PT-OP-F Manual Assessment Start: 03/23/21 15:16 Freq: Status: Active Protocol: Document 03/24/21 16:00 AW (Rec: 03/24/21 17:01 AW [email or web address]) Manual Assessments Soft Tissue Assessment Soft Tissue Mobility Assessment Hamstring extensibility limited in SLR - lacking 15-20 degrees bilaterally. Joint Mobility Assessment Joint Mobility Assessment Hip internal rotation severely limited bilaterally and left end-range IR reproduces back pain. Lumbar PA's restricted below ~L3 with appreciable hinge at this level. PT-OP-G Mobility & Gait Start: 03/23/21 15:16 Freq: Status: Active Protocol: Document 03/24/21 16:00 AW (Rec: 03/24/21 17:01 AW [email or web address]) OP Gait Assessment Comments Gait Comments Gait is mildly antalgic with wide DAYLIN. Pt has flat feet and wears SuperFeet in his shoes which are worn more on the lateral aspects. Pt walks with increased right trunk rotation. PT-OP-H Neuro Start: 03/23/21 15:16 Freq: Status: Active Protocol: Document 03/24/21 16:00 AW (Rec: 03/24/21 17:01 AW [email or web address]) Sensation Evaluation Gross Sensation Gross Sensation Left LE Impaired,Right LE Impaired Sensation Description Numbness Comments Summary Comments Pt has history of neuropathy and lacks light touch sensation in bilateral feet. Pt can not feel deep pressure in either foot. Sensitivity to deep pressure begins at level of malleoli. Deep Tendon Reflex & Clonus Assessment Deep Tendon Reflex Bilateral Achilles Deep Tendon Reflex 1+ Diminished Bilateral Patellar Deep Tendon Reflex 1+ Diminished PT-OP-J Posture/Palpation/Skin Start: 03/23/21 15:16 Freq: Status: Active Protocol: Document 03/24/21 16:00 AW (Rec: 03/24/21 17:01 AW [email or web address]) Posture Evaluation Position Standing Evaluation View Lateral Comments Posture Comments Flat lumbar spine with appreciable hinge at ~L3. PT-OP-K Range of Motion Start: 03/23/21 15:16 Freq: Status: Active Protocol: Document 03/24/21 16:00 AW (Rec: 03/24/21 17:08 AW [email or web address]) Lumbar Spine Range of Motion Lumbar Spine Active Degrees Testing Position Standing Flexion 75 Extension 10 Comments B rotation WNL. Left lateral flexion reproduces low back pain. Pt loses balance with reaching sideways both directions. Hip Goniometric Range of Motion Hip bilateral Comments Internal rotation <10 degrees bilaterally in supine and left hip IR reproduces back pain. Flexion mildly limited by habitus. Extension reproduces back pain. PT-OP-L Special Tests Start: 03/23/21 15:16 Freq: Status: Active Protocol: Document 03/24/21 16:00 AW (Rec: 03/24/21 17:08 AW [email or web address]) Special Tests Lumbar Spine Special Tests Slump Test Results negative Hip Special Tests Scour Test Test Results negative PT-OP-M Strength Start: 03/23/21 15:16 Freq: Status: Active Protocol: Document 03/24/21 16:00 AW (Rec: 03/24/21 17:08 AW [email or web address]) Hip Strength Hip Manual Muscle Testing bilateral Flexion (L2) 4 Good Extension (S1) 4 Good Abduction 4 Good External Rotation 4+ Good+ Internal Rotation 4+ Good+ PT-OP-Q Treatments Start: 03/23/21 15:16 Freq: Status: Active Protocol: Document 04/13/21 16:00 AW (Rec: 04/13/21 16:20 AW [id number]) Cardio Equipment Recumbent Stepper (Sci-Fit) Duration (Minutes) 6 Resistance 2 Seat Position 13 Other LE only Therapeutic Exercises Supine Exercises supine clamshell Supine Exercise Name supine clam Side bilateral Comments reviewed for band placement; pt c/o left foot numbness with band SKTC/DKTC Supine Exercise Name SKTC/DKTC Reps/Minutes 30 SH x 4 Comments prep for activity; pt reports good relief piriformis stretch Supine Exercise Name HEP review Side bilateral Reps/Minutes 30 x2 Comments right seems tighter than left pelvic tilts Resistance AROM Equipment Used nylon strap under low back Comments cued smash your low back to the table; PT pulls on strap for tact feedbac Sitting Exercises lumbar flexion stretch Sitting Exercise Name HEP review Equipment Used 18 chair Reps/Minutes 30 sec hold x3 Comments cued wide stance, chest lift forward flexion- good response Standing Exercises modified plank Standing Exercise Name modified plank Equipment Used tall tx table Reps/Minutes 20 SH x 3 Comments elbows on table lateral band walk Standing Exercise Name lateral band walk Comments considered to replace supine clam but pt c/o pinching LBP Other Exercises cat cow Other Exercise Name cat cow - quadruped Comments pt unable to tolerate due to arthritis B hands Manual Therapy Treatment Soft Tissue Mobilization STMs Body Location B paraspinal, QL Mobilization Type Cross-Friction,Strumming, Sustained Pressure Intensity/Depth Moderate Body Position Sidelying Comments pillows between LEs Self-Care/Home Management Treatment Education Patient Education Home Exercise Program,Posture Other Education Added modified plank for HEP PT-OP-T Assessment and Plan Start: 03/23/21 15:16 Freq: Status: Active Protocol: Document 04/13/21 16:00 AW (Rec: 04/13/21 16:23 AW [email or web address]) Physical Therapy Assessment Goals Three Impairment strength Short Term Goal (STG) Pt will complete 10 reps on 30 second sit to stand test without use of UE's as a measure of improved BLE strength. STG Duration 04/24/21 [facility] Goal (LTG) Pt will complete 15 reps on 30 second sit to stand test without use of UE's as a measure of improved BLE strength. LTG Duration 05/24/21 Two Impairment lacks HEP Short Term Goal (STG) Pt will be educated in positions of comfort to manage back pain and improve posture . STG Duration 04/24/21 [facility] Goal (LTG) Pt will be independent with HEP for long-term management of back pain symptoms. One Impairment limited standing/walking tolerance [facility] Goal (LTG) Pt will walk or stand for one hour without increase in baseline pain to return to walking program for exercise LTG Duration 05/24/21 Assessment Summary Assessment Leo reports general improvement in low back pressure symptoms but remains troubled by pain when first getting up in the morning. Attempted to modify supine hip strength due to pt complaint of left foot tingling when using band around knees and minor groin irritation. Physical Therapy Plan Frequency and Duration Frequency of Treatment 1-2x/week Duration of Treatment 2 months Plan of Care Start Date 03/24/21 Plan of Care End Date 05/24/21 Therapeutic Interventions Therapeutic Interventions Balance Training,Gait Training ,Home Exercise Program,Manual Therapy,Neuromuscular Re- education,Patient/Caregiver Education,Self-Care/Home Management,Soft Tissue Mobilization,Therapeutic Activities,Therapeutic Exercises Modalities Cold Pack/Ice Massage,Hot Packs Next Visit Focus/Plan Next Note Type Treatment Note Next Visit Plan Continue flexion-based ther ex , ther ex for B hip strength.
--- NOTE | 2021-04-15 16:14 | PT.OTN ---
Current Diagnoses Spinal stenosis, lumbar region with neurogenic claudication (04/15/21) Difficulty in walking, not elsewhere classified (04/15/21) Abnormal posture (04/15/21) Physical Therapy Treatment Note PT-OP-A Visit Information Start: 03/23/21 15:16 Freq: Status: Active Protocol: Document 04/15/21 16:00 AW (Rec: 04/15/21 16:07 AW [id number]) Out-Patient Physical Therapy Visit Information Visit Information Visit Type Treatment Note Visit Start Time 15:20 Visit Stop Time 16:00 Total Visit Minutes 40 Visit Number 6 Number of [employer] Visits 0 Precautions Precautions Better hearing in right ear. Wears B hearing aids. PT-OP-B Current Condition Start: 03/23/21 15:16 Freq: Status: Active Protocol: Document 03/24/21 16:00 AW (Rec: 03/23/21 15:26 AW [id number]) Current Condition History of Current Condition Onset Date 10 months Current Complaints low back pain History of Current Condition Pt states he has low back pain when standing or trying to go for a walk. Pressure builds up and the only way to relieve it is to sit down. He can stand or walk 45 minutes at the most. He lives in [place] and [place] or around [place] neighborhood. He has no problem picking items up from the floor. Sleeping on his back tends to exacerbate his pain; he tends to sleep on his left side. Sitting and Motrin relieve his pain. Pt prefers to use Motrin sparingly and states he is most likely to use it if he needs to ensure a good nights' sleep. Pt has long history of neuropathy in bilateral feet but reports no trouble with balance or falls. He does admit that he attends to his gait initiation by standing up square, turning, and then beginning to walk as opposed to getting up and going without thinking about it. Pt states he wears 2-3 pair of socks with shoes at nearly all times. Extra socks keep his feet warm and protect him from injury since he has absent light touch sensation especially on the bottoms of his feet. He also has history of PAD but recent ankle- brachial index was >1.5 bilaterally. Pt had a sleep study recently and CPAP was recommended. Pt is waiting on equipment to arrive. 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 The gloves keep swelling down and help with pain. Prior Treatments and Tests - X-rays 01/13/21 with findings of mild to moderate bilateral hip OA and multilevel spondylosis with no significant change since June 2017. - MRI lumbar spine 01/21/21: 1 . Multilevel degenerative disc and facet disease, as well as ligamentum flavum hypertrophy and epidural lipomatosis. 2. Multilevel canal stenoses, worst at L3-L4 and L4-L5, where there are severe canal stenosis. 3. Multilevel foraminal stenoses, worst at L4-L5 and L5-S1 where there is associated intraforaminal nerve root compression. Recommend correlation with clinical symptoms to ascertain relevance of these findings. - PT for bilateral MCP ROM and sensation disturbance in 2019 . Future Testing and Treatments Planned None identified Treatment Goals Patient/Caregiver Goals Avoid surgery. Improve standing and walking tolerance . Reduce back pain. Improve sleep. Current Functional Impairments (Reported) Functional Limitations- Mobility/Gait Poor tolerance for walking and standing Functional Limitations- Work/School Unable to work with hands as well as he used to due to arthritis and neuropathy. Personal Factors Other Personal Factors That May Effect (+) prior experience with PT Therapy/Recovery (+) motivated to avoid invasive treatment PT-OP-C Subjective Start: 03/23/21 15:16 Freq: Status: Active Protocol: Document 04/15/21 16:00 AW (Rec: 04/15/21 16:07 AW [id number]) OP-PT Subjective Patient Comments Patient Comments These appointments might be too close together. I'm still sore from last time. PT-OP-F Manual Assessment Start: 03/23/21 15:16 Freq: Status: Active Protocol: Document 03/24/21 16:00 AW (Rec: 03/24/21 17:01 AW [email or web address]) Manual Assessments Soft Tissue Assessment Soft Tissue Mobility Assessment Hamstring extensibility limited in SLR - lacking 15-20 degrees bilaterally. Joint Mobility Assessment Joint Mobility Assessment Hip internal rotation severely limited bilaterally and left end-range IR reproduces back pain. Lumbar PA's restricted below ~L3 with appreciable hinge at this level. PT-OP-G Mobility & Gait Start: 03/23/21 15:16 Freq: Status: Active Protocol: Document 03/24/21 16:00 AW (Rec: 03/24/21 17:01 AW [email or web address]) OP Gait Assessment Comments Gait Comments Gait is mildly antalgic with wide DAYLIN. Pt has flat feet and wears SuperFeet in his shoes which are worn more on the lateral aspects. Pt walks with increased right trunk rotation. PT-OP-H Neuro Start: 03/23/21 15:16 Freq: Status: Active Protocol: Document 03/24/21 16:00 AW (Rec: 03/24/21 17:01 AW [email or web address]) Sensation Evaluation Gross Sensation Gross Sensation Left LE Impaired,Right LE Impaired Sensation Description Numbness Comments Summary Comments Pt has history of neuropathy and lacks light touch sensation in bilateral feet. Pt can not feel deep pressure in either foot. Sensitivity to deep pressure begins at level of malleoli. Deep Tendon Reflex & Clonus Assessment Deep Tendon Reflex Bilateral Achilles Deep Tendon Reflex 1+ Diminished Bilateral Patellar Deep Tendon Reflex 1+ Diminished PT-OP-J Posture/Palpation/Skin Start: 03/23/21 15:16 Freq: Status: Active Protocol: Document 03/24/21 16:00 AW (Rec: 03/24/21 17:01 AW [email or web address]) Posture Evaluation Position Standing Evaluation View Lateral Comments Posture Comments Flat lumbar spine with appreciable hinge at ~L3. PT-OP-K Range of Motion Start: 03/23/21 15:16 Freq: Status: Active Protocol: Document 03/24/21 16:00 AW (Rec: 03/24/21 17:08 AW [email or web address]) Lumbar Spine Range of Motion Lumbar Spine Active Degrees Testing Position Standing Flexion 75 Extension 10 Comments B rotation WNL. Left lateral flexion reproduces low back pain. Pt loses balance with reaching sideways both directions. Hip Goniometric Range of Motion Hip bilateral Comments Internal rotation <10 degrees bilaterally in supine and left hip IR reproduces back pain. Flexion mildly limited by habitus. Extension reproduces back pain. PT-OP-L Special Tests Start: 03/23/21 15:16 Freq: Status: Active Protocol: Document 03/24/21 16:00 AW (Rec: 03/24/21 17:08 AW [email or web address]) Special Tests Lumbar Spine Special Tests Slump Test Results negative Hip Special Tests Scour Test Test Results negative PT-OP-M Strength Start: 03/23/21 15:16 Freq: Status: Active Protocol: Document 03/24/21 16:00 AW (Rec: 03/24/21 17:08 AW [email or web address]) Hip Strength Hip Manual Muscle Testing bilateral Flexion (L2) 4 Good Extension (S1) 4 Good Abduction 4 Good External Rotation 4+ Good+ Internal Rotation 4+ Good+ PT-OP-Q Treatments Start: 03/23/21 15:16 Freq: Status: Active Protocol: Document 04/15/21 16:00 AW (Rec: 04/15/21 16:07 AW [id number]) Therapeutic Exercises Supine Exercises SKTC/DKTC Supine Exercise Name SKTC/DKTC Reps/Minutes 30 SH x 4 Comments prep for activity; pt reports good relief Sidelying Exercises open book Sidelying Exercise Name open book Side bilateral Reps/Minutes x10 Comments cued head turn to follow hand; deep breath end range clamshell Sidelying Exercise Name clam Side bilateral Resistance AROM Reps/Minutes 2x10 Comments cued stacked hips; to alternate with supine clam for HEP Manual Therapy Treatment Soft Tissue Mobilization STMs Body Location B paraspinal, QL Mobilization Type Cross-Friction,Strumming, Sustained Pressure Intensity/Depth Moderate Body Position Prone Comments Increased density noted left paraspinals, improved post- STMs Self-Care/Home Management Treatment Education Patient Education Home Exercise Program,Posture Other Education Added clamshell (to replace or alternate with supine clam) and SL open book thoracic rotation. PT-OP-T Assessment and Plan Start: 03/23/21 15:16 Freq: Status: Active Protocol: Document 04/15/21 16:00 AW (Rec: 04/15/21 16:14 AW [email or web address]) Physical Therapy Assessment Goals Three Impairment strength Short Term Goal (STG) Pt will complete 10 reps on 30 second sit to stand test without use of UE's as a measure of improved BLE strength. STG Duration 04/24/21 Senior Care Goal (LTG) Pt will complete 15 reps on 30 second sit to stand test without use of UE's as a measure of improved BLE strength. LTG Duration 05/24/21 Two Impairment lacks HEP Short Term Goal (STG) Pt will be educated in positions of comfort to manage back pain and improve posture . STG Duration 04/24/21 Senior Care Goal (LTG) Pt will be independent with HEP for long-term management of back pain symptoms. One Impairment limited standing/walking tolerance Senior Care Goal (LTG) Pt will walk or stand for one hour without increase in baseline pain to return to walking program for exercise LTG Duration 05/24/21 Assessment Summary Assessment Leo presents today with moderate back pain/pressure but overall improved. He feels he has good ideas for relief when the pressure builds up. Discussed doing strengthening exercises every other day instead of daily and pt understood. Will continue treatment at once weekly frequency. Physical Therapy Plan Frequency and Duration Frequency of Treatment 1-2x/week Duration of Treatment 2 months Plan of Care Start Date 03/24/21 Plan of Care End Date 05/24/21 Therapeutic Interventions Therapeutic Interventions Balance Training,Gait Training ,Home Exercise Program,Manual Therapy,Neuromuscular Re- education,Patient/Caregiver Education,Self-Care/Home Management,Soft Tissue Mobilization,Therapeutic Activities,Therapeutic Exercises Modalities Cold Pack/Ice Massage,Hot Packs Next Visit Focus/Plan Next Note Type Treatment Note Next Visit Plan Continue flexion-based ther ex , ther ex for B hip strength ( in standing at next visit if tolerated).
--- NOTE | 2021-04-22 16:03 | PT.OTN ---
Current Diagnoses Spinal stenosis, lumbar region with neurogenic claudication (04/22/21) Difficulty in walking, not elsewhere classified (04/22/21) Abnormal posture (04/22/21) Physical Therapy Treatment Note PT-OP-A Visit Information Start: 03/23/21 15:16 Freq: Status: Active Protocol: Document 04/22/21 16:00 AW (Rec: 04/22/21 16:00 AW [id number]) Out-Patient Physical Therapy Visit Information Visit Information Visit Type Treatment Note Visit Start Time 15:19 Visit Stop Time 16:00 Total Visit Minutes 41 Visit Number 7 Number of [employer]ISON Visits 0 Precautions Precautions Better hearing in right ear. Wears B hearing aids. PT-OP-B Current Condition Start: 03/23/21 15:16 Freq: Status: Active Protocol: Document 03/24/21 16:00 AW (Rec: 03/23/21 15:26 AW [id number]) Current Condition History of Current Condition Onset Date 10 months Current Complaints low back pain History of Current Condition Pt states he has low back pain when standing or trying to go for a walk. Pressure builds up and the only way to relieve it is to sit down. He can stand or walk 45 minutes at the most. He lives in [place] and [place] or around his neighborhood. He has no problem picking items up from the floor. Sleeping on his back tends to exacerbate his pain; he tends to sleep on his left side. Sitting and Motrin relieve his pain. Pt prefers to use Motrin sparingly and states he is most likely to use it if he needs to ensure a good nights' sleep. Pt has long history of neuropathy in bilateral feet but reports no trouble with balance or falls. He does admit that he attends to his gait initiation by standing up square, turning, and then beginning to walk as opposed to getting up and going without thinking about it. Pt states he wears 2-3 pair of socks with shoes at nearly all times. Extra socks keep his feet warm and protect him from injury since he has absent light touch sensation especially on the bottoms of his feet. He also has history of PAD but recent ankle- brachial index was >1.5 bilaterally. Pt had a sleep study recently and CPAP was recommended. Pt is waiting on equipment to arrive. 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 The gloves keep swelling down and help with pain. Prior Treatments and Tests - X-rays 01/13/21 with findings of mild to moderate bilateral hip OA and multilevel spondylosis with no significant change since June 2017. - MRI lumbar spine 01/21/21: 1 . Multilevel degenerative disc and facet disease, as well as ligamentum flavum hypertrophy and epidural lipomatosis. 2. Multilevel canal stenoses, worst at L3-L4 and L4-L5, where there are severe canal stenosis. 3. Multilevel foraminal stenoses, worst at L4-L5 and L5-S1 where there is associated intraforaminal nerve root compression. Recommend correlation with clinical symptoms to ascertain relevance of these findings. - PT for bilateral MCP ROM and sensation disturbance in 2019 . Future Testing and Treatments Planned None identified Treatment Goals Patient/Caregiver Goals Avoid surgery. Improve standing and walking tolerance . Reduce back pain. Improve sleep. Current Functional Impairments (Reported) Functional Limitations- Mobility/Gait Poor tolerance for walking and standing Functional Limitations- Work/School Unable to work with hands as well as he used to due to arthritis and neuropathy. Personal Factors Other Personal Factors That May Effect (+) prior experience with PT Therapy/Recovery (+) motivated to avoid invasive treatment PT-OP-C Subjective Start: 03/23/21 15:16 Freq: Status: Active Protocol: Document 04/22/21 16:00 AW (Rec: 04/22/21 16:00 AW [id number]) OP-PT Subjective Patient Comments Patient Comments Pt is happy with appointments further apart. Can focus more on home exercise. PT-OP-F Manual Assessment Start: 03/23/21 15:16 Freq: Status: Active Protocol: Document 03/24/21 16:00 AW (Rec: 03/24/21 17:01 AW [email or web address]) Manual Assessments Soft Tissue Assessment Soft Tissue Mobility Assessment Hamstring extensibility limited in SLR - lacking 15-20 degrees bilaterally. Joint Mobility Assessment Joint Mobility Assessment Hip internal rotation severely limited bilaterally and left end-range IR reproduces back pain. Lumbar PA's restricted below ~L3 with appreciable hinge at this level. PT-OP-G Mobility & Gait Start: 03/23/21 15:16 Freq: Status: Active Protocol: Document 03/24/21 16:00 AW (Rec: 03/24/21 17:01 AW [email or web address]) OP Gait Assessment Comments Gait Comments Gait is mildly antalgic with wide DAYLIN. Pt has flat feet and wears SuperFeet in his shoes which are worn more on the lateral aspects. Pt walks with increased right trunk rotation. PT-OP-H Neuro Start: 03/23/21 15:16 Freq: Status: Active Protocol: Document 03/24/21 16:00 AW (Rec: 03/24/21 17:01 AW [email or web address]) Sensation Evaluation Gross Sensation Gross Sensation Left LE Impaired,Right LE Impaired Sensation Description Numbness Comments Summary Comments Pt has history of neuropathy and lacks light touch sensation in bilateral feet. Pt can not feel deep pressure in either foot. Sensitivity to deep pressure begins at level of malleoli. Deep Tendon Reflex & Clonus Assessment Deep Tendon Reflex Bilateral Achilles Deep Tendon Reflex 1+ Diminished Bilateral Patellar Deep Tendon Reflex 1+ Diminished PT-OP-J Posture/Palpation/Skin Start: 03/23/21 15:16 Freq: Status: Active Protocol: Document 03/24/21 16:00 AW (Rec: 03/24/21 17:01 AW [email or web address]) Posture Evaluation Position Standing Evaluation View Lateral Comments Posture Comments Flat lumbar spine with appreciable hinge at ~L3. PT-OP-K Range of Motion Start: 03/23/21 15:16 Freq: Status: Active Protocol: Document 03/24/21 16:00 AW (Rec: 03/24/21 17:08 AW [email or web address]) Lumbar Spine Range of Motion Lumbar Spine Active Degrees Testing Position Standing Flexion 75 Extension 10 Comments B rotation WNL. Left lateral flexion reproduces low back pain. Pt loses balance with reaching sideways both directions. Hip Goniometric Range of Motion Hip bilateral Comments Internal rotation <10 degrees bilaterally in supine and left hip IR reproduces back pain. Flexion mildly limited by habitus. Extension reproduces back pain. PT-OP-L Special Tests Start: 03/23/21 15:16 Freq: Status: Active Protocol: Document 03/24/21 16:00 AW (Rec: 03/24/21 17:08 AW [email or web address]) Special Tests Lumbar Spine Special Tests Slump Test Results negative Hip Special Tests Scour Test Test Results negative PT-OP-M Strength Start: 03/23/21 15:16 Freq: Status: Active Protocol: Document 03/24/21 16:00 AW (Rec: 03/24/21 17:08 AW [email or web address]) Hip Strength Hip Manual Muscle Testing bilateral Flexion (L2) 4 Good Extension (S1) 4 Good Abduction 4 Good External Rotation 4+ Good+ Internal Rotation 4+ Good+ PT-OP-Q Treatments Start: 03/23/21 15:16 Freq: Status: Active Protocol: Document 04/22/21 16:00 AW (Rec: 04/22/21 16:00 AW [id number]) Therapeutic Exercises Supine Exercises active SLR Supine Exercise Name active SLR Side bilateral Resistance AROM Reps/Minutes x12 Comments requires cues for PPT, back flat pelvic tilts Resistance AROM Equipment Used prep for SLR Comments cued smash your low back to the table; PT pulls on strap for tact feedbac Sidelying Exercises open book Sidelying Exercise Name open book Side bilateral Reps/Minutes x10 Comments cued head turn to follow hand; deep breath end range clamshell Sidelying Exercise Name clam Side bilateral Resistance TB2 Reps/Minutes 2x10 Comments cued stacked hips; to alternate with supine clam for HEP Sitting Exercises lumbar flexion stretch Sitting Exercise Name HEP review Equipment Used 18 chair Reps/Minutes 30 sec hold x3 Comments cued wide stance, chest lift forward flexion- good response Standing Exercises modified plank Standing Exercise Name modified plank - clinic only Equipment Used tall tx table Reps/Minutes 20 SH x 3 Comments elbows on table Manual Therapy Treatment Soft Tissue Mobilization STMs Body Location B paraspinal, QL Mobilization Type Cross-Friction,Strumming, Sustained Pressure Intensity/Depth Moderate Body Position Prone Comments Increased density noted B paraspinals, improved post- STMs PT-OP-T Assessment and Plan Start: 03/23/21 15:16 Freq: Status: Active Protocol: Document 04/22/21 16:00 AW (Rec: 04/22/21 16:03 AW [id number]) Physical Therapy Assessment Goals Three Impairment strength Short Term Goal (STG) Pt will complete 10 reps on 30 second sit to stand test without use of UE's as a measure of improved BLE strength. STG Duration 04/24/21 Senior Care Goal (LTG) Pt will complete 15 reps on 30 second sit to stand test without use of UE's as a measure of improved BLE strength. LTG Duration 05/24/21 Two Impairment lacks HEP Short Term Goal (STG) Pt will be educated in positions of comfort to manage back pain and improve posture . STG Duration 04/24/21 Senior Care Goal (LTG) Pt will be independent with HEP for long-term management of back pain symptoms. One Impairment limited standing/walking tolerance Bulk Folder Goal (LTG) Pt will walk or stand for one hour without increase in baseline pain to return to walking program for exercise LTG Duration 05/24/21 Assessment Summary Assessment Leo responds best to flexion- based ther ex. He tolerated STM bilateral paraspinals in prone today with improvement in tone after tx. Physical Therapy Plan Frequency and Duration Frequency of Treatment 1-2x/week Duration of Treatment 2 months Plan of Care Start Date 03/24/21 Plan of Care End Date 05/24/21 Therapeutic Interventions Therapeutic Interventions Balance Training,Gait Training ,Home Exercise Program,Manual Therapy,Neuromuscular Re- education,Patient/Caregiver Education,Self-Care/Home Management,Soft Tissue Mobilization,Therapeutic Activities,Therapeutic Exercises Modalities Cold Pack/Ice Massage,Hot Packs Next Visit Focus/Plan Next Note Type Treatment Note Next Visit Plan Continue flexion-based ther ex , ther ex for B hip strength ( in standing at next visit if tolerated).
--- NOTE | 2021-05-04 17:22 | PT.OTN ---
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 Wears B hearing aids. PT-OP-B Current Condition Start: 03/23/21 15:16 Freq: Status: Active Protocol: Document 03/24/21 16:00 AW (Rec: 03/23/21 15:26 AW [id number]) Current Condition History of Current Condition Onset Date 10 months Current Complaints low back pain History of Current Condition Pt states he has low back pain when standing or trying to go for a walk. Pressure builds up and the only way to relieve it is to sit down. He can stand or walk 45 minutes at the most. He lives in [place] and [place] or around [place] neighborhood. He has no problem picking items up from the floor. Sleeping on his back tends to exacerbate his pain; he tends to sleep on his left side. Sitting and Motrin relieve his pain. Pt prefers to use Motrin sparingly and states he is most likely to use it if he needs to ensure a good nights' sleep. Pt has long history of neuropathy in bilateral feet but reports no trouble with balance or falls. He does admit that he attends to his gait initiation by standing up square, turning, and then beginning to walk as opposed to getting up and going without thinking about it. Pt states he wears 2-3 pair of socks with shoes at nearly all times. Extra socks keep his feet warm and protect him from injury since he has absent light touch sensation especially on the bottoms of his feet. He also has history of PAD but recent ankle- brachial index was >1.5 bilaterally. Pt had a sleep study recently and CPAP was recommended. Pt is waiting on equipment to arrive. 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 The gloves keep swelling down and help with pain. Prior Treatments and Tests - X-rays 01/13/21 with findings of mild to moderate bilateral hip OA and multilevel spondylosis with no significant change since June 2017. - MRI lumbar spine 01/21/21: 1 . Multilevel degenerative disc and facet disease, as well as ligamentum flavum hypertrophy and epidural lipomatosis. 2. Multilevel canal stenoses, worst at L3-L4 and L4-L5, where there are severe canal stenosis. 3. Multilevel foraminal stenoses, worst at L4-L5 and L5-S1 where there is associated intraforaminal nerve root compression. Recommend correlation with clinical symptoms to ascertain relevance of these findings. - PT for bilateral MCP ROM and sensation disturbance in 2019 . Future Testing and Treatments Planned None identified Treatment Goals Patient/Caregiver Goals Avoid surgery. Improve standing and walking tolerance . Reduce back pain. Improve sleep. Current Functional Impairments (Reported) Functional Limitations- Mobility/Gait Poor tolerance for walking and standing Functional Limitations- Work/School Unable to work with hands as well as he used to due to arthritis and neuropathy. Personal Factors Other Personal Factors That May Effect (+) prior experience with PT Therapy/Recovery (+) motivated to avoid invasive treatment PT-OP-C Subjective Start: 03/23/21 15:16 Freq: Status: Active Protocol: Document 05/04/21 16:00 AW (Rec: 05/04/21 16:04 AW [id number]) OP-PT Subjective Patient Comments Patient Comments Finally got my CPAP machine yesterday and I slept great last night. PT-OP-F Manual Assessment Start: 03/23/21 15:16 Freq: Status: Active Protocol: Document 03/24/21 16:00 AW (Rec: 03/24/21 17:01 AW [email or web address]) Manual Assessments Soft Tissue Assessment Soft Tissue Mobility Assessment Hamstring extensibility limited in SLR - lacking 15-20 degrees bilaterally. Joint Mobility Assessment Joint Mobility Assessment Hip internal rotation severely limited bilaterally and left end-range IR reproduces back pain. Lumbar PA's restricted below ~L3 with appreciable hinge at this level. PT-OP-G Mobility & Gait Start: 03/23/21 15:16 Freq: Status: Active Protocol: Document 03/24/21 16:00 AW (Rec: 03/24/21 17:01 AW [email or web address]) OP Gait Assessment Comments Gait Comments Gait is mildly antalgic with wide DAYLIN. Pt has flat feet and wears SuperFeet in his shoes which are worn more on the lateral aspects. Pt walks with increased right trunk rotation. PT-OP-H Neuro Start: 03/23/21 15:16 Freq: Status: Active Protocol: Document 03/24/21 16:00 AW (Rec: 03/24/21 17:01 AW [email or web address]) Sensation Evaluation Gross Sensation Gross Sensation Left LE Impaired,Right LE Impaired Sensation Description Numbness Comments Summary Comments Pt has history of neuropathy and lacks light touch sensation in bilateral feet. Pt can not feel deep pressure in either foot. Sensitivity to deep pressure begins at level of malleoli. Deep Tendon Reflex & Clonus Assessment Deep Tendon Reflex Bilateral Achilles Deep Tendon Reflex 1+ Diminished Bilateral Patellar Deep Tendon Reflex 1+ Diminished PT-OP-J Posture/Palpation/Skin Start: 03/23/21 15:16 Freq: Status: Active Protocol: Document 03/24/21 16:00 AW (Rec: 03/24/21 17:01 AW [email or web address]) Posture Evaluation Position Standing Evaluation View Lateral Comments Posture Comments Flat lumbar spine with appreciable hinge at ~L3. PT-OP-K Range of Motion Start: 03/23/21 15:16 Freq: Status: Active Protocol: Document 03/24/21 16:00 AW (Rec: 03/24/21 17:08 AW [email or web address]) Lumbar Spine Range of Motion Lumbar Spine Active Degrees Testing Position Standing Flexion 75 Extension 10 Comments B rotation WNL. Left lateral flexion reproduces low back pain. Pt loses balance with reaching sideways both directions. Hip Goniometric Range of Motion Hip bilateral Comments Internal rotation <10 degrees bilaterally in supine and left hip IR reproduces back pain. Flexion mildly limited by habitus. Extension reproduces back pain. PT-OP-L Special Tests Start: 03/23/21 15:16 Freq: Status: Active Protocol: Document 03/24/21 16:00 AW (Rec: 03/24/21 17:08 AW [email or web address]) Special Tests Lumbar Spine Special Tests Slump Test Results negative Hip Special Tests Scour Test Test Results negative PT-OP-M Strength Start: 03/23/21 15:16 Freq: Status: Active Protocol: Document 03/24/21 16:00 AW (Rec: 03/24/21 17:08 AW [email or web address]) Hip Strength Hip Manual Muscle Testing bilateral Flexion (L2) 4 Good Extension (S1) 4 Good Abduction 4 Good External Rotation 4+ Good+ Internal Rotation 4+ Good+ PT-OP-Q Treatments Start: 03/23/21 15:16 Freq: Status: Active Protocol: Document 05/04/21 16:00 AW (Rec: 05/04/21 16:04 AW [id number]) Cardio Equipment Recumbent Stepper (Sci-Fit) Duration (Minutes) 6 Resistance 2 Seat Position 13 Other LE only Therapeutic Exercises Supine Exercises LTR with T ball Supine Exercise Name LTR with T ball Equipment Used 55 cm ball SKTC/DKTC Supine Exercise Name SKTC/DKTC Reps/Minutes 30 SH x 4 Comments prep for activity; pt reports good relief Sidelying Exercises clamshell Sidelying Exercise Name clam + reverse clam Side bilateral Resistance TB2 for clam; AROM reverse clam Reps/Minutes 2x10 Comments cued stacked hips; to alternate with supine clam for HEP Sitting Exercises 5xSTS Sitting Exercise Name 5xSTS Equipment Used no UE Comments 16.9 sec; 13.2 sec; no c/o pain Standing Exercises lateral band walk Standing Exercise Name lateral band walk Comments no low back pain; consider for HEP next visit Manual Therapy Treatment Soft Tissue Mobilization STMs Body Location B paraspinal, QL Mobilization Type Cross-Friction,Instrument Assisted,Strumming,Sustained Pressure Intensity/Depth Moderate Body Position Prone Comments Increased density noted B paraspinals, improved post- STMs Self-Care/Home Management Treatment Education Patient Education Home Exercise Program,Posture PT-OP-T Assessment and Plan Start: 03/23/21 15:16 Freq: Status: Active Protocol: Document 05/04/21 16:00 AW (Rec: 05/04/21 17:22 AW [email or web address]) Physical Therapy Assessment Goals Three Impairment strength Short Term Goal (STG) Pt will complete 10 reps on 30 second sit to stand test without use of UE's as a measure of improved BLE strength. 05/04/21 Pt completes 5xSTS without UE support in 13.2 seconds STG Duration 04/24/21 Correction Goal (LTG) Pt will complete 15 reps on 30 second sit to stand test without use of UE's as a measure of improved BLE strength. LTG Duration 05/24/21 Two Impairment lacks HEP Short Term Goal (STG) Pt will be educated in positions of comfort to manage back pain and improve posture . 05/04/21 MET STG Duration 04/24/21 Correction Goal (LTG) Pt will be independent with HEP for long-term management of back pain symptoms. One Impairment limited standing/walking tolerance Correction Goal (LTG) Pt will walk or stand for one hour without increase in baseline pain to return to walking program for exercise LTG Duration 05/24/21 Assessment Summary Assessment Leo reports continued improvement in back pressure symptoms. May be reaching plateau in progress. Discussed assessing after another 2-3 weekly visits. Physical Therapy Plan Frequency and Duration Frequency of Treatment 1-2x/week Duration of Treatment 2 months Plan of Care Start Date 03/24/21 Plan of Care End Date 05/24/21 Therapeutic Interventions Therapeutic Interventions Balance Training,Gait Training ,Home Exercise Program,Manual Therapy,Neuromuscular Re- education,Patient/Caregiver Education,Self-Care/Home Management,Soft Tissue Mobilization,Therapeutic Activities,Therapeutic Exercises Modalities Cold Pack/Ice Massage,Hot Packs Next Visit Focus/Plan Next Note Type Treatment Note Next Visit Plan Continue flexion-based ther ex , ther ex for B hip strength ( in standing at next visit if tolerated).
--- NOTE | 2021-05-13 15:13 | PT.OTN ---
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 Wears B hearing aids. PT-OP-B Current Condition Start: 03/23/21 15:16 Freq: Status: Active Protocol: Document 03/24/21 16:00 AW (Rec: 03/23/21 15:26 AW [id number]) Current Condition History of Current Condition Onset Date 10 months Current Complaints low back pain History of Current Condition Pt states he has low back pain when standing or trying to go for a walk. Pressure builds up and the only way to relieve it is to sit down. He can stand or walk 45 minutes at the most. He lives in [place] and [place] or around his neighborhood. He has no problem picking items up from the floor. Sleeping on his back tends to exacerbate his pain; he tends to sleep on his left side. Sitting and Motrin relieve his pain. Pt prefers to use Motrin sparingly and states he is most likely to use it if he needs to ensure a good nights' sleep. Pt has long history of neuropathy in bilateral feet but reports no trouble with balance or falls. He does admit that he attends to his gait initiation by standing up square, turning, and then beginning to walk as opposed to getting up and going without thinking about it. Pt states he wears 2-3 pair of socks with shoes at nearly all times. Extra socks keep his feet warm and protect him from injury since he has absent light touch sensation especially on the bottoms of his feet. He also has history of PAD but recent ankle- brachial index was >1.5 bilaterally. Pt had a sleep study recently and CPAP was recommended. Pt is waiting on equipment to arrive. 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 The gloves keep swelling down and help with pain. Prior Treatments and Tests - X-rays 01/13/21 with findings of mild to moderate bilateral hip OA and multilevel spondylosis with no significant change since June 2017. - MRI lumbar spine 01/21/21: 1 . Multilevel degenerative disc and facet disease, as well as ligamentum flavum hypertrophy and epidural lipomatosis. 2. Multilevel canal stenoses, worst at L3-L4 and L4-L5, where there are severe canal stenosis. 3. Multilevel foraminal stenoses, worst at L4-L5 and L5-S1 where there is associated intraforaminal nerve root compression. Recommend correlation with clinical symptoms to ascertain relevance of these findings. - PT for bilateral MCP ROM and sensation disturbance in 2019 . Future Testing and Treatments Planned None identified Treatment Goals Patient/Caregiver Goals Avoid surgery. Improve standing and walking tolerance . Reduce back pain. Improve sleep. Current Functional Impairments (Reported) Functional Limitations- Mobility/Gait Poor tolerance for walking and standing Functional Limitations- Work/School Unable to work with hands as well as he used to due to arthritis and neuropathy. Personal Factors Other Personal Factors That May Effect (+) prior experience with PT Therapy/Recovery (+) motivated to avoid invasive treatment PT-OP-C Subjective Start: 03/23/21 15:16 Freq: Status: Active Protocol: Document 05/13/21 15:10 AW (Rec: 05/13/21 15:11 AW [id number]) OP-PT Subjective Patient Comments Patient Comments Pt states he is continuing to sleep well and his back is feeling better as well. PT-OP-F Manual Assessment Start: 03/23/21 15:16 Freq: Status: Active Protocol: Document 03/24/21 16:00 AW (Rec: 03/24/21 17:01 AW [email or web address]) Manual Assessments Soft Tissue Assessment Soft Tissue Mobility Assessment Hamstring extensibility limited in SLR - lacking 15-20 degrees bilaterally. Joint Mobility Assessment Joint Mobility Assessment Hip internal rotation severely limited bilaterally and left end-range IR reproduces back pain. Lumbar PA's restricted below ~L3 with appreciable hinge at this level. PT-OP-G Mobility & Gait Start: 03/23/21 15:16 Freq: Status: Active Protocol: Document 03/24/21 16:00 AW (Rec: 03/24/21 17:01 AW [email or web address]) OP Gait Assessment Comments Gait Comments Gait is mildly antalgic with wide DAYLIN. Pt has flat feet and wears SuperFeet in his shoes which are worn more on the lateral aspects. Pt walks with increased right trunk rotation. PT-OP-H Neuro Start: 03/23/21 15:16 Freq: Status: Active Protocol: Document 03/24/21 16:00 AW (Rec: 03/24/21 17:01 AW [email or web address]) Sensation Evaluation Gross Sensation Gross Sensation Left LE Impaired,Right LE Impaired Sensation Description Numbness Comments Summary Comments Pt has history of neuropathy and lacks light touch sensation in bilateral feet. Pt can not feel deep pressure in either foot. Sensitivity to deep pressure begins at level of malleoli. Deep Tendon Reflex & Clonus Assessment Deep Tendon Reflex Bilateral Achilles Deep Tendon Reflex 1+ Diminished Bilateral Patellar Deep Tendon Reflex 1+ Diminished PT-OP-J Posture/Palpation/Skin Start: 03/23/21 15:16 Freq: Status: Active Protocol: Document 03/24/21 16:00 AW (Rec: 03/24/21 17:01 AW [email or web address]) Posture Evaluation Position Standing Evaluation View Lateral Comments Posture Comments Flat lumbar spine with appreciable hinge at ~L3. PT-OP-K Range of Motion Start: 03/23/21 15:16 Freq: Status: Active Protocol: Document 03/24/21 16:00 AW (Rec: 03/24/21 17:08 AW [email or web address]) Lumbar Spine Range of Motion Lumbar Spine Active Degrees Testing Position Standing Flexion 75 Extension 10 Comments B rotation WNL. Left lateral flexion reproduces low back pain. Pt loses balance with reaching sideways both directions. Hip Goniometric Range of Motion Hip bilateral Comments Internal rotation <10 degrees bilaterally in supine and left hip IR reproduces back pain. Flexion mildly limited by habitus. Extension reproduces back pain. PT-OP-L Special Tests Start: 03/23/21 15:16 Freq: Status: Active Protocol: Document 03/24/21 16:00 AW (Rec: 03/24/21 17:08 AW [email or web address]) Special Tests Lumbar Spine Special Tests Slump Test Results negative Hip Special Tests Scour Test Test Results negative PT-OP-M Strength Start: 03/23/21 15:16 Freq: Status: Active Protocol: Document 03/24/21 16:00 AW (Rec: 03/24/21 17:08 AW [email or web address]) Hip Strength Hip Manual Muscle Testing bilateral Flexion (L2) 4 Good Extension (S1) 4 Good Abduction 4 Good External Rotation 4+ Good+ Internal Rotation 4+ Good+ PT-OP-Q Treatments Start: 03/23/21 15:16 Freq: Status: Active Protocol: Document 05/13/21 15:10 AW (Rec: 05/13/21 15:11 AW [id number]) Therapeutic Exercises Sidelying Exercises hip abduction Sidelying Exercise Name hip abduction Side bilateral Resistance AROM Reps/Minutes x10 open book Sidelying Exercise Name open book Side bilateral Reps/Minutes x10 Comments improved pain free rotation today clamshell Sidelying Exercise Name clam + reverse clam Side bilateral Resistance TB2 for clam; AROM reverse clam Reps/Minutes 2x10 Comments cued stacked hips; to alternate with supine clam for HEP Standing Exercises lateral band walk Standing Exercise Name resisted amb - f/b/lat Resistance yellow loop Comments no low back pain; added to HEP with caution for safety Manual Therapy Treatment Soft Tissue Mobilization STMs Body Location B paraspinal, QL Mobilization Type Cross-Friction,Instrument Assisted,Strumming,Sustained Pressure Intensity/Depth Moderate Body Position Prone Comments Decreased density since last tx, improved post-STMs Self-Care/Home Management Treatment Education Patient Education Home Exercise Program,Posture Other Education Added resisted ambulation to HEP and cautioned pt to perform only with solid counter support and to d/c if felt unstable in any way. PT-OP-T Assessment and Plan Start: 03/23/21 15:16 Freq: Status: Active Protocol: Document 05/13/21 15:10 AW (Rec: 05/13/21 15:13 AW [id number]) Physical Therapy Assessment Goals Three Impairment strength Short Term Goal (STG) Pt will complete 10 reps on 30 second sit to stand test without use of UE's as a measure of improved BLE strength. 05/04/21 Pt completes 5xSTS without UE support in 13.2 seconds STG Duration 04/24/21 Customer Solutions Teammate Goal (LTG) Pt will complete 15 reps on 30 second sit to stand test without use of UE's as a measure of improved BLE strength. LTG Duration 05/24/21 Two Impairment lacks HEP Short Term Goal (STG) Pt will be educated in positions of comfort to manage back pain and improve posture . 05/04/21 MET STG Duration 04/24/21 Customer Solutions Teammate Goal (LTG) Pt will be independent with HEP for long-term management of back pain symptoms. One Impairment limited standing/walking tolerance Half-Way Goal (LTG) Pt will walk or stand for one hour without increase in baseline pain to return to walking program for exercise LTG Duration 05/24/21 Assessment Summary Assessment Will assess goals at next session. Pt tolerates standing ther ex progression today without complaint of increased back pain. Discharge likely next few visits. Physical Therapy Plan Frequency and Duration Frequency of Treatment 1-2x/week Duration of Treatment 2 months Plan of Care Start Date 03/24/21 Plan of Care End Date 05/24/21 Therapeutic Interventions Therapeutic Interventions Balance Training,Gait Training ,Home Exercise Program,Manual Therapy,Neuromuscular Re- education,Patient/Caregiver Education,Self-Care/Home Management,Soft Tissue Mobilization,Therapeutic Activities,Therapeutic Exercises Modalities Cold Pack/Ice Massage,Hot Packs Next Visit Focus/Plan Next Note Type Treatment Note Next Visit Plan Continue flexion-based ther ex , ther ex for B hip strength ( in standing at next visit if tolerated).
--- NOTE | 2021-05-18 17:01 | PT.OTN ---
Current Diagnoses Spinal stenosis, lumbar region with neurogenic claudication (05/18/21) Difficulty in walking, not elsewhere classified (05/18/21) Abnormal posture (05/18/21) Physical Therapy Treatment Note PT-OP-A Visit Information Start: 03/23/21 15:16 Freq: Status: Active Protocol: Document 05/18/21 16:40 AW (Rec: 05/18/21 16:56 AW [id number]) Out-Patient Physical Therapy Visit Information Visit Information Visit Type Treatment Note Visit Start Time 16:00 Visit Stop Time 16:40 Total Visit Minutes 40 Visit Number 10 Number of QUALITY COMPLIANCE MANAGER Visits 0 Precautions Precautions Better hearing in right ear. Wears B hearing aids. PT-OP-B Current Condition Start: 03/23/21 15:16 Freq: Status: Active Protocol: Document 03/24/21 16:00 AW (Rec: 03/23/21 15:26 AW [id number]) Current Condition History of Current Condition Onset Date 10 months Current Complaints low back pain History of Current Condition Pt states he has low back pain when standing or trying to go for a walk. Pressure builds up and the only way to relieve it is to sit down. He can stand or walk 45 minutes at the most. He lives in [place] and [place] around [place] neighborhood. He has no problem picking items up from the floor. Sleeping on his back tends to exacerbate his pain; he tends to sleep on his left side. Sitting and Motrin relieve his pain. Pt prefers to use Motrin sparingly and states he is most likely to use it if he needs to ensure a good nights' sleep. Pt has long history of neuropathy in bilateral feet but reports no trouble with balance or falls. He does admit that he attends to his gait initiation by standing up square, turning, and then beginning to walk as opposed to getting up and going without thinking about it. Pt states he wears 2-3 pair of socks with shoes at nearly all times. Extra socks keep his feet warm and protect him from injury since he has absent light touch sensation especially on the bottoms of his feet. He also has history of PAD but recent ankle- brachial index was >1.5 bilaterally. Pt had a sleep study recently and CPAP was recommended. Pt is waiting on equipment to arrive. 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 The gloves keep swelling down and help with pain. Prior Treatments and Tests - X-rays 01/13/21 with findings of mild to moderate bilateral hip OA and multilevel spondylosis with no significant change since June 2017. - MRI lumbar spine 01/21/21: 1 . Multilevel degenerative disc and facet disease, as well as ligamentum flavum hypertrophy and epidural lipomatosis. 2. Multilevel canal stenoses, worst at L3-L4 and L4-L5, where there are severe canal stenosis. 3. Multilevel foraminal stenoses, worst at L4-L5 and L5-S1 where there is associated intraforaminal nerve root compression. Recommend correlation with clinical symptoms to ascertain relevance of these findings. - PT for bilateral MCP ROM and sensation disturbance in 2019 . Future Testing and Treatments Planned None identified Treatment Goals Patient/Caregiver Goals Avoid surgery. Improve standing and walking tolerance . Reduce back pain. Improve sleep. Current Functional Impairments (Reported) Functional Limitations- Mobility/Gait Poor tolerance for walking and standing Functional Limitations- Work/School Unable to work with hands as well as he used to due to arthritis and neuropathy. Personal Factors Other Personal Factors That May Effect (+) prior experience with PT Therapy/Recovery (+) motivated to avoid invasive treatment PT-OP-C Subjective Start: 03/23/21 15:16 Freq: Status: Active Protocol: Document 05/18/21 16:40 AW (Rec: 05/18/21 16:56 AW [id number]) OP-PT Subjective Patient Comments Patient Comments Sleeping better, moving better , walking farther with less pain. Walking 1/4 to 1/2 mile at a time twice weekly. Planning to increase but confounded by weather. Patient Reported Progress Improving PT-OP-F Manual Assessment Start: 03/23/21 15:16 Freq: Status: Active Protocol: Document 03/24/21 16:00 AW (Rec: 03/24/21 17:01 AW [email or web address]) Manual Assessments Soft Tissue Assessment Soft Tissue Mobility Assessment Hamstring extensibility limited in SLR - lacking 15-20 degrees bilaterally. Joint Mobility Assessment Joint Mobility Assessment Hip internal rotation severely limited bilaterally and left end-range IR reproduces back pain. Lumbar PA's restricted below ~L3 with appreciable hinge at this level. PT-OP-G Mobility & Gait Start: 03/23/21 15:16 Freq: Status: Active Protocol: Document 03/24/21 16:00 AW (Rec: 03/24/21 17:01 AW [email or web address]) OP Gait Assessment Comments Gait Comments Gait is mildly antalgic with wide DAYLIN. Pt has flat feet and wears SuperFeet in his shoes which are worn more on the lateral aspects. Pt walks with increased right trunk rotation. PT-OP-H Neuro Start: 03/23/21 15:16 Freq: Status: Active Protocol: Document 03/24/21 16:00 AW (Rec: 03/24/21 17:01 AW [email or web address]) Sensation Evaluation Gross Sensation Gross Sensation Left LE Impaired,Right LE Impaired Sensation Description Numbness Comments Summary Comments Pt has history of neuropathy and lacks light touch sensation in bilateral feet. Pt can not feel deep pressure in either foot. Sensitivity to deep pressure begins at level of malleoli. Deep Tendon Reflex & Clonus Assessment Deep Tendon Reflex Bilateral Achilles Deep Tendon Reflex 1+ Diminished Bilateral Patellar Deep Tendon Reflex 1+ Diminished PT-OP-J Posture/Palpation/Skin Start: 03/23/21 15:16 Freq: Status: Active Protocol: Document 03/24/21 16:00 AW (Rec: 03/24/21 17:01 AW [email or web address]) Posture Evaluation Position Standing Evaluation View Lateral Comments Posture Comments Flat lumbar spine with appreciable hinge at ~L3. PT-OP-K Range of Motion Start: 03/23/21 15:16 Freq: Status: Active Protocol: Document 03/24/21 16:00 AW (Rec: 03/24/21 17:08 AW [email or web address]) Lumbar Spine Range of Motion Lumbar Spine Active Degrees Testing Position Standing Flexion 75 Extension 10 Comments B rotation WNL. Left lateral flexion reproduces low back pain. Pt loses balance with reaching sideways both directions. Hip Goniometric Range of Motion Hip bilateral Comments Internal rotation <10 degrees bilaterally in supine and left hip IR reproduces back pain. Flexion mildly limited by habitus. Extension reproduces back pain. PT-OP-L Special Tests Start: 03/23/21 15:16 Freq: Status: Active Protocol: Document 03/24/21 16:00 AW (Rec: 03/24/21 17:08 AW [email or web address]) Special Tests Lumbar Spine Special Tests Slump Test Results negative Hip Special Tests Scour Test Test Results negative PT-OP-M Strength Start: 03/23/21 15:16 Freq: Status: Active Protocol: Document 03/24/21 16:00 AW (Rec: 03/24/21 17:08 AW [email or web address]) Hip Strength Hip Manual Muscle Testing bilateral Flexion (L2) 4 Good Extension (S1) 4 Good Abduction 4 Good External Rotation 4+ Good+ Internal Rotation 4+ Good+ PT-OP-Q Treatments Start: 03/23/21 15:16 Freq: Status: Active Protocol: Document 05/18/21 16:40 AW (Rec: 05/18/21 16:56 AW [id number]) Therapeutic Exercises Supine Exercises SKTC/DKTC Supine Exercise Name SKTC/DKTC Reps/Minutes 30 SH x 4 Comments prep for activity; pt reports good relief Sidelying Exercises open book Sidelying Exercise Name open book Side bilateral Reps/Minutes x10 Comments improved pain free rotation today Sitting Exercises 5xSTS Sitting Exercise Name 30 Second Stand Test Equipment Used no UE Comments 12 stands in 30 seconds Standing Exercises modified plank Standing Exercise Name modified plank - clinic only Equipment Used tall tx table Reps/Minutes 20 SH x 3 Comments elbows on table lateral band walk Standing Exercise Name resisted amb - lateral only for home Resistance yellow loop Comments HEP review with caution to use counter for support and to wear shoes Therapeutic Activity Therapeutic Activity lifting Reps/Minutes 8 min Comments Pt lifted empty crate, 5.5# crate, and 10# crate with good hip hinge form from tx table at varying heights. Manual Therapy Treatment Soft Tissue Mobilization STMs Body Location B paraspinal, QL Mobilization Type Cross-Friction,Instrument Assisted,Strumming,Sustained Pressure Intensity/Depth Moderate Body Position Prone Comments Tone decreased significantly since two visits prior Self-Care/Home Management Treatment Education Patient Education Home Exercise Program,Posture PT-OP-T Assessment and Plan Start: 03/23/21 15:16 Freq: Status: Active Protocol: Document 05/18/21 16:40 AW (Rec: 05/18/21 17:01 AW [email or web address]) Physical Therapy Assessment Goals Three Impairment strength Short Term Goal (STG) Pt will complete 10 reps on 30 second sit to stand test without use of UE's as a measure of improved BLE strength. 05/04/21 Pt completes 5xSTS without UE support in 13.2 seconds STG Duration 04/24/21 Specialty Therapist Goal (LTG) Pt will complete 15 reps on 30 second sit to stand test without use of UE's as a measure of improved BLE strength. 05/18/21 - pt completes 12 reps without UE support LTG Duration 05/24/21 Two Impairment lacks HEP Short Term Goal (STG) Pt will be educated in positions of comfort to manage back pain and improve posture . 05/04/21 MET STG Duration 04/24/21 Specialty Therapist Goal (LTG) Pt will be independent with HEP for long-term management of back pain symptoms. 05/18/21 MET One Impairment limited standing/walking tolerance Specialty Therapist Goal (LTG) Pt will walk or stand for one hour without increase in baseline pain to return to walking program for exercise 05/18/21 PROGRESSING - Pt able to stand ~45 minutes and walk 1/2 mile without increase in baseline pain. LTG Duration 05/24/21 Assessment Summary Assessment Pt has made good progress toward goals and feels he has reached a good plateau. Pt is independent with HEP, requiring no cues for safe performance. Pt is appropriate for discharge to [facility]. He understands he will need a new referral if he wishes to return to PT. Physical Therapy Plan Frequency and Duration Frequency of Treatment 1-2x/week Duration of Treatment 2 months Plan of Care Start Date 03/24/21 Plan of Care End Date 05/24/21 Therapeutic Interventions Therapeutic Interventions Balance Training,Gait Training ,Home Exercise Program,Manual Therapy,Neuromuscular Re- education,Patient/Caregiver Education,Self-Care/Home Management,Soft Tissue Mobilization,Therapeutic Activities,Therapeutic Exercises Modalities Cold Pack/Ice Massage,Hot Packs Discharge Physical Therapy Discharge Reasons Goals Met Discharge Comments Pt has made good progress toward goals and feels he has reached a good plateau. Pt is independent with HEP, requiring no cues for safe performance. Pt is appropriate for discharge to [facility]. He understands he will need a new referral if he wishes to return to PT.
== END 2021-07-06 08:55 ==
LOC: PHYS 16:00
PROVIDERS: PCP Student in an Organized Health Care Education/Training Program; Referring Provider Physical Medicine & Rehabilitation; Visit Provider Physical Medicine & Rehabilitation
DX: M48.062 Spinal stenosis, lumbar region with neurogenic claudication (principal); R29.3 Abnormal posture; R26.2 Difficulty in walking, not elsewhere classified
CPT/HCPCS: 97110; 97140; 97162; 97530; 97535

== ENCOUNTER → 2021-12-09 11:24 | Outpatient (CLI) | payer MEDICARE, BC, SELFPAY ==
[2021-12-09 12:51] LABS: BUN Creatinine Ratio 22.2 (6-22); Blood Urea Nitrogen 24 mg/dL (9-20); Calcium 9.4 mg/dL (8.4-10.2); Carbon Dioxide 28 mmol/L (22-32); Chloride 106 mmol/L (98-107); Estimated Glomerular Filt Rate > 60 mL/min (>60); Glucose 112 mg/dL (80-110); HEMOLYSIS < 15 (0-50); Potassium 4.4 mmol/L (3.4-5.1); Sodium 142 mmol/L (137-145)
[2021-12-09 14:56] LABS: Creatinine Urine Random 150.9 mg/dL
[2021-12-09 14:57] LABS: Microalbumi Creatinin Ratio Ur 7.9 ug/mg CR (<30); Microalbumin Urine Random 1.2 mg/dL (0-1.6)
== END ==
PROVIDERS: PCP Student in an Organized Health Care Education/Training Program; Referring Provider Student in an Organized Health Care Education/Training Program; Visit Provider Student in an Organized Health Care Education/Training Program
DX: I10 Essential (primary) hypertension (principal)
CPT/HCPCS: 36415; 80048; 82043; 82570

== ENCOUNTER → 2022-11-28 07:41 | Outpatient (CLI) | payer MEDICARE, BC, SELFPAY ==
[2022-11-28 09:02] LABS: Add Manual Diff / Slide Review NO; Appearance Urine UA CLEAR; Basophils Absolute Auto 100 /uL (0-100); Bilirubin Urine UA NEGATIVE (NEGATIVE); Color Urine UA YELLOW; Eosinophils Absolute Auto 200 /uL (0-450); Eosinophils Percent Auto 4.1 % (2-4); Glucose Urine UA NEGATIVE (Negative); Hematocrit 41.4 % (41-53); Hemoglobin 14.3 g/dL (13.5-17.5); Ketones Urine UA NEGATIVE (NEGATIVE); Leukocyte Esterase Urine UA NEGATIVE (NEGATIVE); Lymphocytes Absolute Auto 1900 /uL (1100-4500); Lymphocytes Percent Auto 37.2 % (25-40); Mean Corpuscular HGB Conc 34.6 % (30-36); Mean Corpuscular Volume 92.5 fL (80-100); Monocytes Absolute Auto 400 /uL (0-900); Neutrophils Absolute Auto 2600 /uL (1500-7000); Neutrophils Percent Auto 49.7 % (50-75); Nitrite Urine UA NEGATIVE (Negative); Occult Blood Urine UA NEGATIVE (Negative); Platelet Count 220 X10^3/uL (150-400); Protein Urine UA NEGATIVE (Negative); Red Blood Cell Count 4.48 X10^6/uL (4.5-5.9); Red Cell Distribution Width 12.8 % (11.6-14.8); Urobilinogen Urine UA 0.2 E.U./dL (0.2); White Blood Cell Count 5.2 X10^3/uL (4.5-11.0)
[2022-11-28 09:12] LABS: Bacteria Urine Occasional (0-1); Culture Indicated Urine Cult Not Indicated; RBC Urine 0-1/HPF (0-5/HPF); Squamous Epithelial Cell Urine 5-10 /HPF (0-5/HPF); WBC Urine 1-5/HPF (0-5/HPF)
[2022-11-28 09:30] LABS: Alanine Aminotransferase 27 IU/L (<50); Albumin 4.2 g/dL (3.5-5.0); Albumin Globulin Ratio 1.6 (1.0-2.8); Alkaline Phosphatase 44 U/L (38-126); Aspartate Aminotransferase 30 IU/L (17-59); BUN Creatinine Ratio 19.1 (6-22); Bilirubin Total 0.7 mg/dL (0.2-1.3); Blood Urea Nitrogen 18 mg/dL (9-20); Calcium 9.3 mg/dL (8.4-10.2); Carbon Dioxide 26 mmol/L (22-32); Chloride 104 mmol/L (98-107); Cholesterol 165 mg/dL (140-199); Estimated Glomerular Filt Rate > 60 mL/min (>60); Globulin 2.7 g/dL (1.7-4.1); Glucose 105 mg/dL (80-110); HDL Cholesterol 41 mg/dL (40-60); HEMOLYSIS < 15 (0-50); LDL Cholesterol Calculated 77 mg/dL (<100); Potassium 4.4 mmol/L (3.4-5.1); Sodium 138 mmol/L (137-145); Total Protein 6.9 g/dL (6.3-8.2); Triglycerides 234 mg/dL (35-150)
[2022-11-28 10:02] LABS: Prostate Specific Antigen Scrn 0.222 ng/mL (0.1-4.0)
[2022-11-28 10:03] LABS: TSH w/ Reflex to FT4 4.06 uIU/mL (0.47-4.68)
== END ==
PROVIDERS: PCP Pediatrics; Referring Provider Pediatrics; Visit Provider Pediatrics
DX: E78.1 Pure hyperglyceridemia (principal); Z12.5 Encounter for screening for malignant neoplasm of prostate; I10 Essential (primary) hypertension; N40.1 Benign prostatic hyperplasia with lower urinary tract symptoms; R35.1 Nocturia
CPT/HCPCS: 36415; 80053; 80061; 81001; 84443; 85025; G0103

== ENCOUNTER → 2023-07-14 09:32 | Outpatient (CLI) | payer MEDICARE, BC, SELFPAY ==
--- NOTE | 2023-07-14 09:34 | DI.RAD.S_ITS ---
PROCEDURE: XR HAND RT MIN 3V INDICATIONS: Right Hand Pain TECHNIQUE: 3 views of the hand(s) acquired. COMPARISON: [facility], CR, XR HAND RT MIN 3V, 10/07/2020, 12:06. FINDINGS: Bones: No fractures or dislocations. Moderate osteoarthritic changes are noted throughout right hand and wrist joints more notably involving 1st CMC joint, scaphoid trapezial joint and 2nd and 3rd DIP joints. Radiolucent area involving ulnar aspect of 3rd metacarpal head. Similar radiolucent areas are also seen involving multiple carpal bones. Radiolucent areas also noted involving 2nd through 4th PIP and DIP joints. No suspicious bony lesions. Soft tissues: No suspicious soft tissue calcifications. IMPRESSION: Osteoarthritic changes in right hand and wrist joints as above. No fracture or dislocation. Radiolucent areas are seen involving carpal bones, 3rd metacarpal head and multiple PIP and DIP joints concerning for erosion secondary to inflammatory arthropathy versus subcortical cysts. Dictated by: Virgil Curry M.D. on 07/14/2023 at 15:08 Approved by: Virgil Curry M.D. on 07/14/2023 at 15:13
== END ==
PROVIDERS: PCP Family Medicine; Referring Provider Family Medicine; Visit Provider Family Medicine
DX: M79.641 Pain in right hand (principal); G89.29 Other chronic pain
CPT/HCPCS: 73130

== ENCOUNTER 2023-07-18 08:31 | Day surgery (SDC) | payer MEDICARE, BC, SELFPAY ==
[2023-07-18] MEDS: LACTATED RINGERS 1,000 ML 42 ML IV (09:19)
[2023-07-18 09:20] VITALS: BP 141/86; PULSE 70; RESP 16; TEMP 36.2; O2SAT 99
--- NOTE | 2023-07-18 09:40 | PM.HP.1 ---
History of Present Illness History of Present Illness Date Patient Seen: 07/18/23 Time Patient Seen: 09:40 Chief complaint: SDC Narrative: 78-year-old man family history of colon cancer here for screening colonoscopy. Last colonoscopy perhaps 10 years ago normal. No abdominal concerns today PFSH Medical History Neuropathy of lower extremity Carpal tunnel syndrome of left wrist BPH (benign prostatic hyperplasia) Essential hypertension with goal blood pressure less than 130/85 Surgical History Status post bunionectomy Family History Brother Cancer Social History household members: spouse Smoking Status: Never smoker Meds Home Medications and Allergies Home Medications Medication Instructions Recorded Confirmed Type vitamin B complex (B Complex 1 1 tab PO DAILY 12/12/17 07/18/23 History tablet) omega-3 fatty acids 1,000 mg 1,000 mg PO DAILY #90 caps 11/07/18 07/18/23 Rx capsule (Fish Oil Concentrate) finasteride 5 mg tablet See Rx Instructions .Route 12/28/20 07/18/23 Rx .COMPLEX #90 tabs vitamin e PO 01/19/22 03/07/23 History valsartan 160 mg tablet 320 mg (2 x 160 mg) PO DAILY #180 02/24/23 07/18/23 Rx tabs atorvastatin 20 mg tablet 20 mg PO BEDTIME #90 tabs 04/03/23 07/18/23 Rx fenofibrate nanocrystallized 145 145 mg PO DAILY #90 tabs 04/03/23 07/18/23 Rx mg tablet cholecalciferol (vitamin D3) 50 50 mcg PO DAILY 07/14/23 07/18/23 History mcg (2,000 unit) capsule Allergies Allergy/AdvReac Type Severity Reaction Status Date / Time doxazosin [DOXAZOSIN] Allergy Severe High Verified 07/18/23 09:15 temperature, rash, lumps on skin mezlocillin [MEZLOCILLIN] Allergy Severe High Verified 07/18/23 09:15 temperature, rash, lumps on skin Penicillins [PENICILLINS] Allergy Severe High Verified 07/18/23 09:15 temperature, rash, lumps on skin Sulfa (Sulfonamide Allergy Severe High Verified 07/18/23 09:15 Antibiotics) temperatures, [SULFA (SULFONAMIDE rash, ANTIBIOTICS)] lumps on skin trimethoprim [TRIMETHOPRIM] Allergy Severe High Verified 07/18/23 09:15 temperature, rash, lumps on skin Exam Vital Signs (past 8 hours): - 07/18/23 09:20 Temperature 97.2 F L Pulse Rate 70 Respiratory Rate 16 Blood Pressure 141/86 H Pulse Oximetry 99 Oxygen Delivery Method Room Air Oxygen Delivery Method Room Air Narrative Exam Narrative: General adult man alert oriented no acute distress Chest nonlabored respiration Extremities warm well perfused Assessment & Plan Assessment & Plan narrative: The patient requires colorectal screening and colonoscopy is recommended. Technical details were discussed. Risks, benefits, alternatives explained. Risks including but not limited to myocardial infarction, aspiration, bleeding, pain, missed lesion, incomplete examination, need for further radiographic studies, colonic perforation, and need for major abdominal surgery were discussed. All questions were answered to their satisfaction, and they are in agreement with this plan.
[2023-07-18 10:18] VITALS: BP 113/73; PULSE 76; RESP 16; TEMP 36.1; O2SAT 96
--- NOTE | 2023-07-18 10:20 | P.OP.COLON_ITS ---
Operative Date/Time/Diagnoses Date of procedure: 07/18/23 Time of procedure: 10:20 Pre-op diagnosis: Family history colon cancer Procedure & Clinicians Study performed: Colonoscopy Same procedure as scheduled: Yes Indications: Colorectal screening Family history of colon cancer Surgeon: Babar Wagner Procedure Notes Procedure in detail: The history and physical was performed/updated and the patient is ASA class is 2. The procedure was discussed in detail with the patient. Potential risks complications including infection, bleeding, missed diagnosis, perforation, need for surgery, and were explained. Their questions were answered and informed consent was obtained. Patient was brought to the procedure room and placed standard monitoring equipment. The patient's vital signs were monitored continuously throughout the entire procedure. Prior to starting time-out was performed. The patient was placed in the left lateral recumbent position. Procedural sedation was administered by anesthesia. Examination began with a thorough inspection of the perianal area there was no evidence of fissures, fistulae, external hemorrhoids or cutaneous malignancy. The colonoscopy scope was then placed into the anal canal and was advanced to the cecum, which was identified by the ileocecal valve, the appendiceal orifice and the confluence of the taenia. The scope was then slowly withdrawn examining colon thoroughly in all directions, irrigating it of any residual stool. The scope was retroflexed within the rectum The patient tolerated the procedure well. They will be discharged once criteria are met. The prep was of fair quality. The withdrawl time was 6 minutes. FINDINGS * Diverticulosis * No masses or polyps * Prep quality fair Specimen(s): none sent Impression: Normal colonoscopy Post-procedure Recommendations: High fiber diet Plan for aftercare: Discussion with primary care in regards to need for future screening Disposition: same day surgery
[2023-07-18 10:23] VITALS: BP 110/68; PULSE 64; RESP 12; O2SAT 96
[2023-07-18 10:28] VITALS: BP 123/83; PULSE 75; RESP 12; O2SAT 99
[2023-07-18 10:32] VITALS: BP 112/74; PULSE 65; RESP 16; O2SAT 95
[2023-07-18 10:34] VITALS: BP 116/73; PULSE 66; RESP 12; TEMP 36.7; O2SAT 97
== END 2023-07-18 11:03 | disposition home or self-care (01) ==
PROVIDERS: PCP Family Medicine; Referring Provider Surgery; Visit Provider Surgery
PROC: 0DJD8ZZ Inspection of Lower Intestinal Tract, Via Natural or Artificial Opening Endoscopic (ICD-10-PCS; CPT 45378; principal; 2023-07-18 09:30)
DX: Z12.11 Encounter for screening for malignant neoplasm of colon (principal); Z80.0 Family history of malignant neoplasm of digestive organs; K57.30 Diverticulosis of large intestine without perforation or abscess without bleeding
CPT/HCPCS: G0105; J2704

== ENCOUNTER → 2023-07-28 15:15 | Outpatient (CLI) | payer MEDICARE, BC, SELFPAY ==
--- NOTE | 2023-07-28 15:21 | DI.RAD.S_ITS ---
PROCEDURE: XR HAND LT MIN 3V INDICATIONS: Treat and Eval TECHNIQUE: 3 views of the hand(s) acquired. COMPARISON: None. FINDINGS: Bones: No acute fractures or dislocations. There is an old fracture fragment in the dorsal aspect of the wrist, likely arising from old triquetral fracture. Carpal bones are normally aligned. No suspicious bony lesions. Severe osteoarthritis, most pronounced at the triscaphe joint and the 1st carpometacarpal joint. There is lateral subluxation of trapezoid. Osteopenia. Soft tissues: No suspicious soft tissue calcifications. There is a soft tissue foreign body in the volar aspect of the wrist. IMPRESSION: 1. No acute bony abnormality. 2. Old triquetral fracture. 3. Severe osteoarthritic changes. 4. Soft tissue foreign body noted. Dictated by: Sierra Francis M.D. on 07/28/2023 at 16:54 Approved by: Sierra Francis M.D. on 07/28/2023 at 17:29
[2023-07-28 17:17] LABS: Add Manual Diff / Slide Review NO; Basophils Absolute Auto 0 /uL (0-100); Basophils Percent Auto 0.8 % (0-2); Eosinophils Absolute Auto 200 /uL (0-450); Hematocrit 41.5 % (41-53); Hemoglobin 14.3 g/dL (13.5-17.5); Lymphocytes Absolute Auto 2600 /uL (1100-4500); Lymphocytes Percent Auto 41.5 % (25-40); Mean Corpuscular HGB Conc 34.6 % (30-36); Mean Corpuscular Hemoglobin 31.6 PG (26-34); Mean Corpuscular Volume 91.3 fL (80-100); Monocytes Absolute Auto 500 /uL (0-900); Monocytes Percent Auto 7.5 % (3-14); Neutrophils Absolute Auto 2800 /uL (1500-7000); Neutrophils Percent Auto 46.2 % (50-75); Platelet Count 227 X10^3/uL (150-400); Red Blood Cell Count 4.54 X10^6/uL (4.5-5.9); White Blood Cell Count 6.2 X10^3/uL (4.5-11.0)
[2023-07-28 17:39] LABS: HEMOLYSIS < 15 (0-50)
[2023-07-28 17:46] LABS: Alanine Aminotransferase 20 IU/L (<50); Albumin 4.3 g/dL (3.5-5.0); Albumin Globulin Ratio 1.4 (1.0-2.8); Alkaline Phosphatase 53 U/L (38-126); Aspartate Aminotransferase 36 IU/L (17-59); BUN Creatinine Ratio 18.1 (6-22); Bilirubin Total 0.6 mg/dL (0.2-1.3); Blood Urea Nitrogen 19 mg/dL (9-20); C-Reactive Protein Quant 0.6 mg/dL (<1.0); Calcium 9.3 mg/dL (8.4-10.2); Carbon Dioxide 23 mmol/L (22-32); Chloride 106 mmol/L (98-107); Estimated Glomerular Filt Rate > 60 mL/min (>60); Globulin 3.1 g/dL (1.7-4.1); Glucose 113 mg/dL (80-110); Sodium 139 mmol/L (137-145); Total Protein 7.4 g/dL (6.3-8.2)
[2023-07-28 17:52] LABS: Rheumatoid Factor < 8.6 IU/mL (<12.0)
[2023-08-01 17:36] LABS: CCP Antibodies IgG/IgA 3 units (0-19)
== END ==
PROVIDERS: PCP Family Medicine; Referring Provider Family Medicine; Visit Provider Family Medicine
DX: M30.0 Polyarteritis nodosa (principal); M19.041 Primary osteoarthritis, right hand; M18.11 Unilateral primary osteoarthritis of first carpometacarpal joint, right hand; M19.031 Primary osteoarthritis, right wrist; M79.5 Residual foreign body in soft tissue; S62.1 Fracture of other and unspecified carpal bone(s)
CPT/HCPCS: 36415; 73130; 80053; 85025; 86140; 86200; 86430

== ENCOUNTER → 2024-05-16 08:24 | Outpatient (CLI) | payer MEDICARE, BC, SELFPAY ==
[2024-05-16 09:08] LABS: Add Manual Diff / Slide Review NO; Basophils Absolute Auto 100 /uL (0-100); Basophils Percent Auto 0.9 % (0-2); Eosinophils Absolute Auto 300 /uL (0-450); Eosinophils Percent Auto 5.2 % (2-4); Hemoglobin 15.5 g/dL (13.5-17.5); Lymphocytes Absolute Auto 2200 /uL (1100-4500); Lymphocytes Percent Auto 36.7 % (25-40); Mean Corpuscular HGB Conc 34.4 % (30-36); Mean Corpuscular Hemoglobin 32.1 PG (26-34); Mean Corpuscular Volume 93.3 fL (80-100); Monocytes Absolute Auto 400 /uL (0-900); Monocytes Percent Auto 6.3 % (3-14); Neutrophils Absolute Auto 3000 /uL (1500-7000); Neutrophils Percent Auto 50.9 % (50-75); Platelet Count 212 X10^3/uL (150-400); Red Blood Cell Count 4.83 X10^6/uL (4.5-5.9); Red Cell Distribution Width 12.9 % (11.6-14.8); White Blood Cell Count 5.9 X10^3/uL (4.5-11.0)
[2024-05-16 09:33] LABS: Alanine Aminotransferase 25 IU/L (<50); Albumin 4.4 g/dL (3.5-5.0); Albumin Globulin Ratio 1.7 (1.0-2.8); Alkaline Phosphatase 44 U/L (38-126); Aspartate Aminotransferase 36 IU/L (17-59); Bilirubin Total 0.7 mg/dL (0.2-1.3); Blood Urea Nitrogen 22 mg/dL (9-20); Calcium 9.6 mg/dL (8.4-10.2); Carbon Dioxide 25 mmol/L (22-32); Chloride 107 mmol/L (98-107); Cholesterol 170 mg/dL (140-199); Estimated Glomerular Filt Rate > 60 mL/min (>60); Globulin 2.6 g/dL (1.7-4.1); Glucose 101 mg/dL (80-110); HDL Cholesterol 43 mg/dL (40-60); HEMOLYSIS < 15 (0-50); LDL Cholesterol Calculated 78 mg/dL (<100); Potassium 4.3 mmol/L (3.4-5.1); Sodium 139 mmol/L (137-145); Triglycerides 243 mg/dL (35-150)
[2024-05-16 10:03] LABS: Prostate Specific Antigen Scrn 0.285 ng/mL (0.1-4.0); TSH w/ Reflex to FT4 3.75 uIU/mL (0.47-4.68)
== END ==
PROVIDERS: PCP Family Medicine; Referring Provider Family Medicine; Visit Provider Family Medicine
DX: R35.1 Nocturia (principal); E78.1 Pure hyperglyceridemia; Z12.5 Encounter for screening for malignant neoplasm of prostate; N40.1 Benign prostatic hyperplasia with lower urinary tract symptoms; I10 Essential (primary) hypertension; Z79.899 Other long term (current) drug therapy
CPT/HCPCS: 36415; 80053; 80061; 84443; 85025; G0103

== ENCOUNTER → 2024-05-24 11:51 | Outpatient (CLI) | payer MEDICARE, BC, SELFPAY ==
--- NOTE | 2024-05-24 11:52 | DI.RAD.S_ITS ---
PROCEDURE: XR LUMBAR SPINE 2-3V INDICATIONS: low back pain TECHNIQUE: 3 views of the lumbar spine were acquired. COMPARISON: [facility], CR, XR LUMBAR SPINE 2-3V, 01/13/2021, 10:43. FINDINGS: Bones: 5 geg-[id number]-[id number] vertebrae are present. There is grade 1 anterolisthesis of L4 on L5 by approximately 8 millimeters and of L5 on S1 by approximately 3-4 millimeters. Advanced facet osteoarthritic changes with hypertrophic osteophyte formation present at L3-L4, L4-L5 and L5-S1 bilaterally left side slightly greater than right.. No vertebral body compression fractures. No suspicious bony lesions. Calcified gallstone noted. Soft tissues: Overlying bowel gas pattern is normal. No suspicious soft tissue calcifications. IMPRESSION: Lumbar spondylolisthesis similar to the prior study Dictated by: Vladimir Miller M.D. on 05/24/2024 at 12:34 Approved by: Vladimir Miller M.D. on 05/24/2024 at 12:36
== END ==
PROVIDERS: PCP Family Medicine; Referring Provider Family Medicine; Visit Provider Family Medicine
DX: M54.50 Low back pain, unspecified (principal); M43.16 Spondylolisthesis, lumbar region
CPT/HCPCS: 72100

== ENCOUNTER → 2024-07-04 10:24 | Outpatient (CLI) | payer MEDICARE, BC, SELFPAY ==
--- NOTE | 2024-07-04 12:34 | ST.SWALLOW ---
Visit Care Team Role Provider Type Patrick Ellington MD Attending Provider Physician Primary Care Provider Referring Provider Specialty: Family Practice Obstetrics Address: [facility] [place], [address] Email: [email or web address] Modified Barium Swallow Study UTILITY ACCOUNTS DIRECTOR Modified Barium Swallow Study Start: 07/04/24 11:49 Freq: Status: Active Protocol: Document 07/04/24 11:49 LNK (Rec: 07/04/24 12:33 [id number]) Modified Barium Swallow Study Total Time Visit Start Time 11:00 Visit Stop Time 11:40 Total Visit Minutes [address] Patrick Ellington Reason for Referral dysphagia Setting Setting Outpatient Care Patient Information Identification Type Name,Date of Patient History Pt was seen for a Modified Barium Swallow Study with c/o frequent coughing when eating. He reported that a cough is usually triggered by toasted bread, crackers, chips, bread and spicy foods. Pt described the cough as sometimes intense. Pt also noted that he will feel a sense of globus mid chest if he is reclined while reading after a meal. Pt stated that drinking water or a liquid helps quite a bit in relieving the cough. Pt denied a PMH of GERD, injury to head/neck and any neurologic diagnoses. Pt had a prievious MBSS on with this UTILITY ACCOUNTS DIRECTOR. The results indicated swallow function to be WNL Subjective Observations Pt was seated in the fluoroscopy chair with directions and procedures described for him. He indicated he understood and agreed to proceed. Patient Positioning Position View Lat-A/P Imaging Lateral View Textures Administered Trials Presented Thin Liquid via Spoon (IDDSI 0 ),Thin Liquid via Cup (IDDSI 0 ),Thin Liquid via Straw (IDDSI 0),Extremely Thick Liquid via Spoon (IDDSI 4),Regular ( IDDSI 7) Barium Tablet Yes The IDDSI Framework Protocol: IDDSI.1 Oral Impairment Source: The Modified Barium Swallow Impairment Profile (MBSImP??) Lip Closure Interlabial escape; no progression to anterior lip Tongue Control During Bolus Hold Cohesive bolus between tongue to palatal seal Bolus Preparation/Mastication Timely & efficient chewing & mashing Bolus Transport/Lingual Motion Brisk tongue motion Oral Residue Complete oral clearance Initiation of Pharyngeal Swallow Bolus head in valleculae Additional Oral Impairment Observations Oral phase of swallow WNL *OME and DKS were observed to be WNL. *Dentition natural with a lower partial denture in place and in good hygiene *Mastication observed with rotary chew pattern. *Good bolus formation, control and AP transition. * swallow initiatio in the valeculla; considered to be a normal variant Pharyngeal Impairment Source: The Modified Barium Swallow Impairment Profile (MBSImP??) Soft Palate Elevation No bolus between soft palate & pharyngeal wall Laryngeal Elevation Comp.sup.move.thyroid cart.w/ comp.approx.arytenoids to epiglot petiole Anterior Hyoid Excursion Complete anterior movement Epiglottic Movement Complete inversion Laryngeal Vestibular Closure Complete; no air/contrast in laryngeal vestibule Pharyngeal Stripping Wave Present - complete Pharyngoesophageal Segment Opening Complete distention & complete duration; no obstruction of flow Tongue Base Retraction No contrast between tongue base & posterior pharyngeal wall Pharyngeal Residue Trace residue within/on pharyngeal structures Location Valleculae Additional Pharyngeal Impairment *Pharyngeal phase observed to Observations be WNL *Good base of tongue strength and hyolaryngeal elevation. *Good airway protection without laryngeal penetration or tracheal aspiration. *Trace residue observed in the valeculla and base of tongue. A/P View Textures Administered Trials Presented Thin Liquid via Spoon (IDDSI 0 ),Thin Liquid via Cup (IDDSI 0 ),Regular (IDDSI 7) The IDDSI Framework Protocol: IDDSI.1 A/P View Observations Pharyngeal Contraction Complete Esophageal Clearance Upright Position Complete clearance; esophageal coating Vocal Fold Function Good Esophageal Function WFL Additional A-P Observations Esophageal function observed to be WNL Clinical Impressions Dysphagia Type WNL Findings Oral, pharyngeal and esophageal swallow phases observed to be WNL for pt's age. Retention of the cookie trials (3) was noted near aortic arch; a water wash cleared residue. Calibrated barium tablet and thin liquid barium cleared the esophagus in a timely manner. The results observed indicate minimal to no change from 2020 . Patient Appropriate for Therapy No: Results WNL for pt age Recommendations Diet Comments No diet change recommended at this time; Increase liquids during meal Aspiration Precautions Recommended Precautions Alternate Liquids/Solids Treatment Plan Therapy Strategy Recommendations Alternate Liquids/Solids Additional Strategies Recommended Increase liquids during meal to aid in clearance of esophagus to stomach
== END ==
PROVIDERS: PCP Family Medicine; Referring Provider Family Medicine; Visit Provider Family Medicine
DX: R13.12 Dysphagia, oropharyngeal phase (principal)
CPT/HCPCS: 74230

== ENCOUNTER → 2025-04-07 10:57 | Outpatient (CLI) | payer MEDICARE, BC, SELFPAY ==
--- NOTE | 2025-04-07 10:59 | DI.RAD.S_ITS ---
PROCEDURE: XR KNEE RT 3V INDICATIONS: fell on knee, knee pain TECHNIQUE: 3 views of the knee were acquired. COMPARISON: [facility], CR, XR KNEE LT 3V, 05/08/2018, 10:44. [facility], CR, KNEE 3V RIGHT, 03/15/2017, 11:19. FINDINGS: Bones: No fractures or dislocations. No suspicious bony lesions. 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 Soft tissues: Moderate joint effusion. No suspicious soft tissue calcifications. Anterior knee soft tissue swelling. Vascular calcifications. IMPRESSION: No acute osseous abnormality. Moderate right knee joint effusion. Anterior knee soft tissue swelling, correlate for prepatellar bursitis. Dictated by: Kavon Pepper M.D. on 04/07/2025 at 13:46 Approved by: Kavon Pepper M.D. on 04/07/2025 at 13:47
== END ==
PROVIDERS: Family Provider Family Medicine; PCP Family Medicine; Referring Provider Family Medicine; Visit Provider Family Medicine
DX: M17.11 Unilateral primary osteoarthritis, right knee (principal); M25.569 Pain in unspecified knee; M79.89 Other specified soft tissue disorders; M25.461 Effusion, right knee
CPT/HCPCS: 73562

== ENCOUNTER → 2025-05-10 08:16 | Outpatient (CLI) | payer MEDICARE, BC, SELFPAY ==
[2025-05-10 09:16] LABS: Hematocrit 42.7 % (41-53); Hemoglobin 14.8 g/dL (13.5-17.5); Mean Corpuscular HGB Conc 34.7 % (30-36); Mean Corpuscular Hemoglobin 32.2 PG (26-34); Mean Corpuscular Volume 92.8 fL (80-100); Platelet Count 214 X10^3/uL (150-400)
[2025-05-10 09:22] LABS: Microalbumi Creatinin Ratio Ur 19.0 ug/mg CR (<30)
[2025-05-10 09:40] LABS: Alanine Aminotransferase 21 IU/L (<50); Albumin 4.2 g/dL (3.5-5.0); Albumin Globulin Ratio 1.6 (1.0-2.8); Alkaline Phosphatase 45 U/L (38-126); Blood Urea Nitrogen 19 mg/dL (9-20); Calcium 9.4 mg/dL (8.4-10.2); Carbon Dioxide 22 mmol/L (22-32); Chloride 108 mmol/L (98-107); Cholesterol 169 mg/dL (140-199); Estimated Glomerular Filt Rate > 60 mL/min (>60); Globulin 2.7 g/dL (1.7-4.1); Glucose 105 mg/dL (70-99); HDL Cholesterol 45 mg/dL (40-60); HEMOLYSIS < 15 (0-50); Potassium 4.3 mmol/L (3.4-5.1); Sodium 140 mmol/L (137-145); Total Protein 6.9 g/dL (6.3-8.2); Triglycerides 238 mg/dL (35-150)
== END ==
PROVIDERS: PCP Family Medicine; Referring Provider Family Medicine; Visit Provider Family Medicine
DX: I10 Essential (primary) hypertension (principal); E78.1 Pure hyperglyceridemia
CPT/HCPCS: 36415; 80053; 80061; 82043; 82570; 85027